=== PATIENT | female | born 1935 | race Caucasian/White ===

== ENCOUNTER 2016-12-24 15:20 | Outpatient (CLI) | payer MEDICARE, BC ==
[~2016-12-24] VITALS: Ht 175.3 cm; Wt 72.1 kg
[2016-12-25] MEDS ORDERED: ASPI-586 PO (11:42)
[2016-12-25] MEDS ORDERED: CNC1KV IJ (11:42)
[2016-12-25] MEDS ORDERED: CALC-6 PO (11:42)
[2016-12-25] MEDS ORDERED: LACT1CAP39 PO (11:42)
[2016-12-25] MEDS ORDERED: [UNRECOGNIZED DRUG - CODE] PO (11:42)
[2016-12-25] MEDS ORDERED: FLUT1BLS IH (11:42)
[2016-12-25] MEDS ORDERED: CITA10TA12 PO (11:42)
[2016-12-25] MEDS ORDERED: PEG15DRO5 OU (11:42)
[2016-12-25] MEDS ORDERED: OMG1KC PO (11:42)
[2016-12-25] MEDS ORDERED: CITA20TA12 PO (11:42)
[2016-12-25] MEDS ORDERED: FERR-74 PO (11:42)
[2016-12-25] MEDS ORDERED: FEXO-46 PO (11:42)
[2016-12-25] MEDS ORDERED: GUAI400T71 PO (11:42)
[2016-12-25] MEDS ORDERED: CLON0.252 PO (11:42)
[2016-12-25] MEDS ORDERED: IPRA3AMP IH (11:42)
[2016-12-25] MEDS ORDERED: DENO60DI SQ (11:42)
[2016-12-25] MEDS ORDERED: CRAN1TAB5 PO (11:42)
[2016-12-25] MEDS ORDERED: ACET325T49 PO (11:42)
[2016-12-25] MEDS ORDERED: FLUT9.9S NSEACH (11:42)
[2016-12-25] MEDS ORDERED: ASCO1TAB36 PO (11:42)
[2016-12-25] MEDS ORDERED: MONT10TA24 PO (11:54)
[2016-12-25] MEDS ORDERED: DICL100G18 TP (11:54)
[2016-12-25] MEDS ORDERED: MELA1TAB10 PO (11:54)
[2016-12-25] MEDS ORDERED: TIOT18CA2 IH (11:54)
[2016-12-25] MEDS ORDERED: COLL30OI TP (11:54)
[2016-12-25] MEDS ORDERED: HYDR-3812 PO (11:54)
[2016-12-25] MEDS ORDERED: PRED5TAB PO (11:54)
[2016-12-25] MEDS ORDERED: ISOS30TA8 PO (11:54)
[2016-12-25] MEDS ORDERED: SIMV10TA3 PO (11:54)
[2016-12-25] MEDS ORDERED: FURO-125 PO (11:54)
[2016-12-25] MEDS ORDERED: ONDA4TAB10 PO (11:54)
[2016-12-25] MEDS ORDERED: POLY119P5 PO (11:54)
[2016-12-25] MEDS ORDERED: NAPR500T3 PO (11:54)
[2016-12-25] MEDS ORDERED: TRAM50TA2 PO (11:54)
[2016-12-25] MEDS ORDERED: GLUC-219 PO (11:54)
[2016-12-25] MEDS ORDERED: MULT-166 PO (11:54)
== END 2016-12-24 16:30 ==
LOC: PREOP 15:20
PROVIDERS: ATTEND Orthopaedic Surgery
DX: Z01.818 Encounter for other preprocedural examination (principal)

== ENCOUNTER 2016-12-28 10:06 | Inpatient (IN) | payer MEDICARE, BC ==
[2016-12-28] VITALS (7 sets, daily range): BP systolic 77–154; BP diastolic 38–55
[~2016-12-28] VITALS: Ht 175.3 cm; Wt 68.6 kg
[~2016-12-28 10:06] MED LIST: ACET325T49 PO; ASCO1TAB36 PO; ASPI-586 PO; CALC-6 PO; CITA10TA12 PO; CITA20TA12 PO; CLON0.252 PO; CNC1KV IJ; COLL30OI TP; CRAN1TAB5 PO; DENO60DI SQ; DICL100G18 TP; FERR-74 PO; FEXO-46 PO; FLUT1BLS IH; FLUT9.9S NSEACH; FURO-125 PO; GLUC-219 PO; GUAI400T71 PO; HYDR-3812 PO; IPRA3AMP IH; ISOS30TA8 PO; LACT1CAP39 PO; MELA1TAB10 PO; MONT10TA24 PO; MULT-166 PO; NAPR500T3 PO; OMG1KC PO; ONDA4TAB10 PO; PEG15DRO5 OU; POLY119P5 PO; PRED5TAB PO; SIMV10TA3 PO; TIOT18CA2 IH; TRAM50TA2 PO; [UNRECOGNIZED DRUG - CODE] PO
[2016-12-28] MEDS ORDERED: VANCOMYCIN 1000 MG/VIAL ONE ×2 (11:18→11:22)
[2016-12-28] MEDS ORDERED: NEO/POLY/BAC (NEOSPORIN) OINT 15 GM TUBE ONE (11:19)
[2016-12-28] MEDS ORDERED: BUP/EPI 0.5% 1:200,000 (SENSORCAINE) 30 ML VIAL ONE (11:25)
[2016-12-28 11:31] LABS: MEAN PLATELET VOLUME 10.2 FL (7.4-10.4); RED BLOOD COUNT 4.05 10^6/uL (4.35-5.85); RED CELL DISTRIBUTION WIDTH 14.9 % (10.0-14.5); WHITE BLOOD COUNT 8.3 10^3/uL (4.3-11.0)
[2016-12-28] MEDS ORDERED: proPOfol 200 MG/20 ML (DIPRIVAN) VIAL IV ONE (11:37)
[2016-12-28] MEDS ORDERED: ROCURONIUM 50 MG/5 ML (ZEMURON) VIAL IV ONE (11:37)
[2016-12-28] MEDS ORDERED: fentaNYL INJECTION 250 MCG/5 ML AMP ONE (11:37)
[2016-12-28] MEDS ORDERED: DEXMEDETOMIDINE PRE-MIX (OR) 50 ML IV ONE (11:41)
[2016-12-28] MEDS: LACTATED RINGERS 1,000 ML IV PRN ×2 (12:00→14:12)
[2016-12-28] MEDS ORDERED: BACITRACIN 100,000 UNIT/NS 1000 ML POUR BOTTLE IR ONE ×2 (12:15)
--- NOTE | 2016-12-28 12:43 | Progress Note-Pre Operative ---
Pre-Operative Progress Note H&P Reviewed The H&P was reviewed, patient examined and no changes noted. Date H&P Reviewed: Dec 28, 2016 Time H&P Reviewed: 12:43 Pre-Operative Diagnosis: Lumbar burst fracture ELBA DE LA CRUZ DO Dec 28, 2016 12:43
[2016-12-28] MEDS ORDERED: CATHETER FLUSH 10 ML SYR IV PRN (13:45)
[2016-12-28] MEDS ORDERED: ceFAZolin INJECTION 1,000 MG in NS (IVPB) 50 ML IV ONE (13:45)
[2016-12-28] MEDS ORDERED: morphine INJ 10 MG/ML 1ML (SYR OR VIAL) ONE (14:42)
[2016-12-28] MEDS ORDERED: SEVOFLURANE (ULTANE) 15 ML INHAL SOLN ONE ×2 (15:35→16:38)
[2016-12-28] MEDS ORDERED: NS (IVPB) 100 ML ONE (15:35)
[2016-12-28] MEDS ORDERED: PHENYLEPHRINE INJ 10 MG/ML (NEO-SYNEPHRINE 1%) ONE (15:35)
[2016-12-28] MEDS ORDERED: PHENYLEPHRINE 100 MCG/ML 10 ML (ANESTHESIA) SYR ONE (15:35)
[2016-12-28] MEDS ORDERED: LACTATED RINGERS 2,000 ML IV ONE (15:35)
[2016-12-28] MEDS: NS IV 1000 ML 1,000 ML IV PRN ×2 (16:11→21:28)
[2016-12-28] MEDS ORDERED: NS IV 1000 ML 1,000 ML ONE ×2 (16:17→17:07)
[2016-12-28] MEDS ORDERED: ONDANSETRON 4 MG/2 ML (SDV) Z0FRAN ONE (16:37)
--- NOTE | 2016-12-28 16:58 | Diagnostic Imaging Report ---
INDICATION: Intraoperative views of the lumbar spine. INDICATION: Lumbar spine fusion. FLUOROSCOPY TIME: The fluoroscopic time provided to the OR is 99 seconds. IMPRESSION: The provided images demonstrate transpedicular screws placed at multiple levels in the lumbar spine. Dictated by: Dictated on workstation # [id number]
[2016-12-28] MEDS: morphine INJ 10 MG/ML 1ML (SYR OR VIAL) IVP PRN ×4 (17:00→17:12)
[2016-12-28] MEDS ORDERED: FUROSEMIDE 40 MG/4 ML INJ (LASIX) IVP NR (17:15)
[2016-12-28] MEDS ORDERED: ACETAMINOPHEN 325 MG TABLET/CAPLET (TYLENOL) PO PRN (17:15)
[2016-12-28] MEDS ORDERED: ONDANSETRON 4 MG/2 ML (SDV) Z0FRAN IVP PRN (17:15)
[2016-12-28] MEDS ORDERED: ONDANSETRON 4 MG/2 ML (SDV) Z0FRAN IV PRN (17:15)
[2016-12-28] MEDS ORDERED: BISACODYL 5 MG (DULCOLAX) TABLET PO PRN (17:15)
[2016-12-28] MEDS ORDERED: HYDROmorphone (DILAUDID) 2 MG/ML VIAL IVP PRN (17:15)
[2016-12-28] MEDS: SENNOSIDES 8.6 MG (SENOKOT) TAB PO SCH (20:32)
[2016-12-28] MEDS: DOCUSATE SODIUM 100 MG (COLACE) CAP PO SCH (20:32)
[2016-12-28] MEDS: ceFAZolin INJECTION 1,000 MG in NS (IVPB) 50 ML IV SCH (20:32)
[2016-12-28] MEDS: morphine INJ 4 MG/ML 1 ML (VIAL/SYRINGE) IVP PRN (20:32)
[2016-12-28] MEDS: oxyCODONE/APAP 5/325MG (PERCOCET 5) TABLET PO PRN (20:32)
[2016-12-28] MEDS: FAMOTIDINE 20 MG (PEPCID) TABLET PO SCH (20:32)
[2016-12-29] VITALS (23 sets, daily range): BP systolic 98–152; BP diastolic 42–111
[2016-12-29] MEDS: CYCLOBENZAPRINE 10 MG (FLEXERIL) TAB PO PRN (00:27)
[2016-12-29] MEDS: morphine INJ 4 MG/ML 1 ML (VIAL/SYRINGE) IVP PRN ×6 (00:28→18:14)
[2016-12-29] MEDS: NS IV 1000 ML 1,000 ML IV PRN ×2 (03:58→14:37)
[2016-12-29] MEDS: oxyCODONE/APAP 5/325MG (PERCOCET 5) TABLET PO PRN ×2 (04:02→08:52)
[2016-12-29 04:26] LABS: RED BLOOD COUNT 2.65 10^6/uL (4.35-5.85); RED CELL DISTRIBUTION WIDTH 15.2 % (10.0-14.5); WHITE BLOOD COUNT 10.7 10^3/uL (4.3-11.0)
[2016-12-29 04:58] LABS: ALANINE AMINOTRANSFERASE 23 U/L (0-55); ALBUMIN 2.1 G/DL (3.2-4.5); ANION GAP 6 MMOL/L (5-14); ASPARTATE AMINO TRANSFERASE 34 U/L (5-34); BILIRUBIN,TOTAL 0.3 MG/DL (0.1-1.0); BLOOD UREA NITROGEN 15 MG/DL (7-18); BUN/CREATININE RATIO 27; CARBON DIOXIDE 20 MMOL/L (21-32); CHLORIDE 113 MMOL/L (98-107); CREATININE SERUM 0.56 MG/DL (0.60-1.30); GFR ESTIMATED > 60; GLUCOSE 99 MG/DL (70-105); POTASSIUM 3.6 MMOL/L (3.6-5.0); SODIUM 139 MMOL/L (135-145); TOTAL PROTEIN 3.8 G/DL (6.4-8.2)
[2016-12-29 05:03] LABS: CALCIUM 5.8 MG/DL (8.5-10.1)
[2016-12-29] MEDS: ceFAZolin INJECTION 1,000 MG in NS (IVPB) 50 ML IV SCH ×2 (05:17→15:08)
[2016-12-29] MEDS ORDERED: CALCIUM CHLORIDE 1 GM/10 ML (IMS) SYR ONE (06:12)
[2016-12-29] MEDS ORDERED: NS (IVPB) 100 ML ONE (06:13)
[2016-12-29] MEDS ORDERED: CALCIUM GLUCONATE 10% INJ 4.65 MEQ in NS (IVPB) 50 ML IV ONE (06:15)
[2016-12-29] MEDS ORDERED: CALCIUM GLUC. 10% 4.65 MEQ/10 ML VIAL ONE (06:16)
[2016-12-29] MEDS: MULTIVIT W/MINERALS TAB (THERAGRAN M) PO SCH (07:46)
--- NOTE | 2016-12-29 08:08 | Progress Note (SOAP) ---
Subjective Subjective/Events-last exam Mrs Simms is POD #1 s/p L3-S1 PSIF with L4-S1 laminectomy for burst fracture. She is doing well this am and her pain is controlled. She has not been OOB and states she has been compliant with IS. She is laying flat for comfort but is not restricted from a post op standpoint and i encouraged her to raise HOB. She has cough but denies sob or chest pain. She had 1L blood loss during surgery and has received 1 unit prbc with 1 unit on hold. Her medications have not yet been confirmed for reconciliation. Review of Systems General: No Chills, No Night Sweats HEENT: No Head Aches Pulmonary: No Dyspnea, Cough Cardiovascular: No: Chest Pain, Palpitations Gastrointestinal: No: Abdominal Pain, Nausea, Vomiting Musculoskeletal: back pain Neurological: Numbness, Weakness, No: Change in speech, Confusion, Incoordination Objective Exam Vital Signs Date Time Temp Pulse Resp B/P (MAP) Pulse Ox O2 Delivery O2 Flow Rate FiO2 12/29/16 06:00 87 18 106/42 96 Nasal Cannula 3.00 12/29/16 05:00 89 14 109/42 93 Nasal Cannula 3.00 12/29/16 04:05 99 Nasal Cannula 3.00 12/29/16 04:00 100.2 86 20 122/49 98 Nasal Cannula 3.00 12/29/16 03:00 82 15 112/49 93 Nasal Cannula 3.00 12/29/16 02:00 85 16 105/47 96 Nasal Cannula 3.00 12/29/16 01:00 84 15 100/49 97 Nasal Cannula 3.00 12/29/16 01:00 85 12/29/16 00:00 98.7 85 16 98/46 96 Nasal Cannula 3.00 12/29/16 00:00 96 Nasal Cannula 3.00 12/28/16 23:00 89 18 91/38 97 Nasal Cannula 3.00 12/28/16 22:43 Nasal Cannula 3.00 12/28/16 22:00 93 17 117/50 95 Nasal Cannula 3.00 12/28/16 21:00 84 18 105/50 95 Nasal Cannula 3.00 12/28/16 20:00 78 17 89/44 95 Nasal Cannula 3.00 12/28/16 19:00 82 12/28/16 19:00 98.9 78 17 91/44 94 Nasal Cannula 3.00 12/28/16 18:30 93 3.00 12/28/16 18:30 98.7 87 10 77/51 93 3.00 12/28/16 18:30 98.7 86 14 84/41 93 Nasal Cannula 3.00 12/28/16 17:12 97.2 12/28/16 17:08 97.2 12/28/16 17:04 97.2 12/28/16 17:00 97.2 12/28/16 12:00 98.5 78 18 154/55 95 Nasal Cannula 2.50 I & O 12/29/16 07:00 Intake Total 3680 ml Output Total 1180 ml Balance 2500 ml Capillary Refill : General Appearance: No Apparent Distress Neck: Normal Inspection Respiratory: No Accessory Muscle Use, No Respiratory Distress Cardiovascular: Regular Rate, Rhythm, No Edema, Normal Peripheral Pulses Peripheral Pulses: 2+ Dorsalis Pedis (R), 2+ Left Dors-Pedis (L), 2+ Radial Pulses (R), 2+ Radial Pulses (L) Gastrointestinal: non tender, soft, no organomegaly, no pulsatile mass Extremity: Normal Capillary Refill, Normal Inspection, Normal Range of Motion, Non Tender, No Calf Tenderness, No Pedal Edema Neurologic/Psychiatric: Alert, Oriented x3, Other (4/5 left anterior tibialis) Results Lab Laboratory Tests 12/28/16 11:22: White Blood Count 8.3, Red Blood Count 4.05L, Hemoglobin 12.2, Hematocrit 38, Mean Corpuscular Volume 93, Mean Corpuscular Hemoglobin 30, Mean Corpuscular Hemoglobin Concent 33, Red Cell Distribution Width 14.9H, Platelet Count 272, Mean Platelet Volume 10.2 12/28/16 17:24: Hemoglobin 9.6#L, Hematocrit 30L 12/29/16 04:10: White Blood Count 10.7, Red Blood Count 2.65L, Hemoglobin 8.0L, Hematocrit 25L, Mean Corpuscular Volume 93, Mean Corpuscular Hemoglobin 30, Mean Corpuscular Hemoglobin Concent 32, Red Cell Distribution Width 15.2H, Platelet Count 141, Mean Platelet Volume 11.0H, Sodium Level 139, Potassium Level 3.6, Chloride Level 113H, Carbon Dioxide Level 20L, Anion Gap 6, Blood Urea Nitrogen 15, Creatinine 0.56L, Estimat Glomerular Filtration Rate > 60, BUN/Creatinine Ratio 27, Glucose Level 99, Calcium Level 5.8*L, Total Bilirubin 0.3, Aspartate Amino Transf (AST/SGOT) 34, Alanine Aminotransferase (ALT/SGPT) 23, Alkaline Phosphatase 53, Total Protein 3.8L, Albumin 2.1L Assessment/Plan Assessment/Plan Assess & Plan/Chief Complaint Assessment: POD #1 s/p lumbar decompression and fusion ABL anemia hypocalcemia COPD osteoporosis Plan: monitor labs - had 1 prbc, 1 on hold reconcile meds consider mag and vit d level if no improvement in calcium IS at bedise and encouraged OOB with PT drain output 350 - continue drain Clinical Quality Measures DVT/VTE Risk/Contraindication: Risk Factor Score Per Nursin RFS Level Per Nursing on Admit: 4+=Very High ARAVIND DELGADILLO Dec 29, 2016 08:07
[2016-12-29] MEDS: DOCUSATE SODIUM 100 MG (COLACE) CAP PO SCH ×2 (08:51→20:00)
[2016-12-29] MEDS: SENNOSIDES 8.6 MG (SENOKOT) TAB PO SCH ×2 (08:51→20:00)
[2016-12-29] MEDS: FAMOTIDINE 20 MG (PEPCID) TABLET PO SCH ×2 (08:51→20:00)
--- NOTE | 2016-12-29 09:08 | Consultation-Hospitalist ---
HPI History of Present Illness: HPI/Chief Complaint CC: s/p spine burst fracture repair POD # 1 HPI: This is an 81-year-old white female [facility] patient of Dr. Rondon the presents to the ICU following a very complex spine surgery following a burst fracture. Dr. Yanez performed the procedure in an uncomplicated manner but he shouldn't did lose 1 L of blood loss during the procedure so she was given 1 unit of packed red blood cell transfusion in 1 remains on hold. Hypocalcemia has been managed with calcium gluconate initiation but overall her dementia and high risk for postop pneumonia due to inability to get up and around because of the pain is certainly an issue. Her daughters at the bedside and is from out of town and not familiar with most of her medical problems except for her behavior issues that require [facility] placement. The priority is to get her back to [facility] where she is familiar with the staff in her room in order to facilitate recovery. Incentive spirometry has been ordered but due to dementia unsure if she is given a be able to perform that with any effort. I did order nebulizer treatments to try to expand lungs and outweigh and initiated physical therapy and occupational therapy along with getting out of bed in chair to help prevent a postop pneumonia. She reports spine pain but otherwise she does report heel pain which heal protectors are being ordered. Source: family Exam Limitations: clinical condition Date Seen 12/29/16 Attending Physician Curt Yanez DO PCP Fred Espinal DO Referring Physician Date of Admission Dec 28, 2016 at 10:30 Home Medications & Allergies Home Medications Reviewed patient Home Medication Reconciliation Form Allergies Allergies Coded Allergies nitrofurantoin (Verified Allergy, Unknown, 12/24/16) Past Kbabbsr-Juwaqu-Gmcjmc Hx Patient Social History Marrital Status: Employed/Student: retired Alcohol Use: Denies Use Recreational Drug Use: No Smoking Status: Former Smoker Type Used: Cigarettes Physical Abuse Screen: No Sexual Abuse: No Recent Foreign Travel: No Contact w/other who traveled: No Recent Hopitalizations: No Recent Infectious Disease Expo: No Immunizations Up To Date Date of Pneumonia Vaccine: Nov 02, 2015 Date of Influenza Vaccine: Aug 04, 2016 Seasonal Allergies Seasonal Allergies: Yes Surgeries HX Surgeries: Yes Surgeries: Orthopedic Respiratory Hx Respiratory Disorders: No Cardiovascular Hx Cardiovascular Disorders: Yes Cardiac Disorders: High Cholesterol, Hypertension Neurological Hx Neurological Disorders: Yes Neurological Disorders: Dementia Genitourinary Hx Genitourinary Disorders: No Gastrointestinal Hx Gastrointestinal Disorders: Yes Gastrointestinal Disorders: Chronic Constipation Musculoskeletal Hx Musculoskeletal Disorders: Yes Musculoskeletal Disorders: Osteoporosis, Arthritis, Chronic Back Pain Endocrine Hx Endocrine Disorders: No HEENT HX ENT Disorders: No Loss of Vision: Bilateral Hearing Impairment: Hard of Hearing Cancer Hx Cancer: No Cancer: Skin Psychosocial Behavioral Health Disorders: Anxiety, Depression Family Medical History Family Hx: Asthma 19 MOTHER G8 BROTHER Cardiovascular disease G8 BROTHER G8 SISTER Hypertension G8 BROTHER G8 SISTER Myocardial infarction G8 BROTHER G8 SISTER Review of Systems ROS-Unable to Obtain: unable to ascertain due to dementia Constitutional: see HPI Physical Exam Physical Exam Vital Signs Vital Sign - Last 12Hours 12/28/16 12:00 Temp 98.5 Pulse 78 Resp 18 B/P (MAP) 154/55 Pulse Ox 95 O2 Delivery Nasal Cannula O2 Flow Rate 2.50 Capillary Refill : General Appearance: WD/WN, Mild Distress (due to spine pain) Eyes: Bilateral Eye Normal Inspection, Bilateral Eye PERRL HEENT: PERRL/EOMI, Normal ENT Inspection, Pharynx Normal Neck: Full Range of Motion, Normal Inspection, Non Tender, Supple, Carotid Bruit Respiratory: Chest Non Tender, Lungs Clear, No Accessory Muscle Use, No Respiratory Distress, Decreased Breath Sounds Cardiovascular: Regular Rate, Rhythm, No Edema, No Gallop, No JVD, No Murmur, Normal Peripheral Pulses Gastrointestinal: Normal Bowel Sounds, No Organomegaly, No Pulsatile Mass, Non Tender, Soft Back: Decreased Range of Motion Extremity: Normal Capillary Refill, Normal Inspection, Normal Range of Motion, Non Tender, No Calf Tenderness, No Pedal Edema Neurologic/Psychiatric: Alert, No Motor/Sensory Deficits, Normal Mood/Affect, Other (disoriented) Skin: Normal Color, Warm/Dry Lymphatic: No Adenopathy Results Results/Procedures Lab Laboratory Tests 12/28/16 11:22 12/28/16 17:24 12/29/16 04:10 Assessment/Plan Admission Diagnosis Assessment: Status post uncomplicated spine surgery to repair burst fracture Postop anemia due to acute blood loss received 1 unit of packed red blood cells Severe hypocalcemia requiring calcium gluconate initiation Dementia Anxiety Behavior problems Chronic constipation Osteoarthritis High risk for postop pneumonia Assessment and Plan Plan: Incentive spirometry Nebulizer treatments DVT prophylaxis SCDs Transfuse as needed Calcium gluconate initiation Monitor labs PT/OT Heel protectors Out of bed Pain control High risk for further complications due to dementia related issues Clinical Quality Measures DVT/VTE Risk/Contraindication: Risk Factor Score Per Nursin RFS Level Per Nursing on Admit: 4+=Very High JOE AVERY DO Dec 29, 2016 09:08
--- NOTE | 2016-12-29 09:09 | Diagnostic Imaging Report ---
INDICATION: Post operative evaluation, lumbar surgery. EXAMINATION: Lumbar spine on 12/29/2016. TECHNIQUE: Two views of the lumbar spine were performed. FINDINGS: There are skin cari overlying the midline of the lumbar region with an overlying surgical drain in place. Post operative screws and rods extend along the lower lumbar region but difficult to count due to superimposed densities in bowel upon the lower lumbar region. These likely extend from L3 through the S1 level with bilateral SI joint screws also noted. Correlate with surgical notes. The osseous structures are fairly well aligned. Bone graft is noted. The L5 vertebral body is not well seen, perhaps due to compression deformity. IMPRESSION: Uncomplicated but limited post operative evaluation. Dictated by: Dictated on workstation # [id number]
--- NOTE | 2016-12-29 10:24 | Physical Therapy Evaluation ---
PT Evaluation-General Medical Diagnosis Admission Date Dec 28, 2016 at 10:30 Medical Diagnosis: lumbar burst fracture Onset Date: Dec 28, 2016 Therapy Diagnosis Therapy Diagnosis: weakness and debility Height/Weight Height (Feet): 5 Height (Inches): 9.00 Weight (Pounds): 154 Weight (Ounces): 0.5 Precautions Precautions/Isolations: Fall Prevention, Standard Precautions Referral Physician: Beau Reason for Referral: Evaluation/Treatment Medical History Pertinent Medical History: COPD Additional Medical History osteoporosis Current History Per Daughter, patient injured vertebrae in [place] at [place]. Reviewed History: Yes Social History Home: [facility] Prior/Core FIM Prior Level of Function Functional [place] Measure 0=Not Assessed/NA 4=Minimal Assistance 1=Total Assistance 5=Supervision or Setup 2=Maximal Assistance 6=Modified [place] 3=Moderate Assistance 7=Complete [place] Bed Mobility: 2 Transfers (B,C,W/C) (FIM): 2 Gait: 1 per family, patient is 2 person assist PLOF at [place] PT Evaluation-Current Subjective Patient and family are very resistive and hesitant to begin PT. PT educated patient on importance of increasing mobility slowly to prevent pneumonia and improve circulation. Patient and family agree. Pain Numeric Pain Scale: 10-Worst Possible Pain Location: Lower Location Body Site: Back Pain Description: Pressure, Stabbing, Acute, Sharp Objective Patient Orientation: Confused Problem Solving: Poor Attachments: Oxygen, Drains, Agrawal Catheter, IV ROM/Strength ROM Lower Extremities bilateral LE WFL Strenght Lower Extremities severely diminished strength bilateral gastrocsoleus musculature due to inactivity PLOF and disease process; no formal testing due to patient inability to tolerate or follow direction Integumentary/Posture Integumentary refer to nursing notes Bladder Incontinence: Agrawal Cath Posture WNL in supine position Neuromuscular (Tone, Coordination, Reflexes) severely diminished coordination PLOF Sensory Vision: Functional Hearing: Impaired Sensation Right Lower Extremit: Impaired Sensation Left Lower Extremity: Impaired Transfers Functional [place] Measure 0=Not Assessed/NA 4=Minimal Assistance 1=Total Assistance 5=Supervision or Setup 2=Maximal Assistance 6=Modified [place] 3=Moderate Assistance 7=Complete [place] Transfers (B, C, W/C) (FIM): 1 Scootin Rollin PT and tech attempted to assist patient with performing supine to sit transfer to sit EOB with extremely slow, PROM movement to diminished pain response. Patient unable to tolerate at this time. Assessment/Needs 81 y.o. female, with uncontrolled back pain, will benefit from skilled PT to address functional strength and mobility to improve current LOF. Patient is currently unable to tolerate minimal activity due to uncontrolled pain. Daughter is very attentive and apprehensive to allow PT to perform professional duties to assist patient in recovery. Education with daughter on receiving the order from the physician to begin therapy. Daughter continues to resist. PT will continue to attempt treatment with patient to assist patient in regaining function. Rehab Potential: Guarded Post Rehab Potential-Barriers: uncontrolled back pain PT Project Intern Goals Project Intern Goals PT Project Intern Goals Time Frame: Jan 08, 2017 Transfers (B,C,W/C) (FIM): 2 Gait (FIM): 1 Gait distance (FIM): 1=up to 49 ft Distance: 5' Gait Level of Assist: 2 Gait Assistive Device: FWW PT Plan Problem List Problem List: Activity Tolerance, Functional Strength, Bed Mobility Treatment/Plan Treatment Plan: Continue Plan of Care Treatment Plan: Bed Mobility, Education, Functional Activity Sander, Functional Strength, Gait, Safety, Therapeutic Exercise, Transfers Treatment Duration: Jan 08, 2017 # of days/week 5-6 Visits Per Week: 5-6 Minutes/Day (Sat/Pandey): PRN Pt/Family Agrees w/Plan: Yes Safety Risks/Education Patient Education: Correct Positioning, Safety Issues Teaching Recipient: Patient, Family Teaching Methods: Demonstration, Discussion Response to Teaching: Reinforcement Needed Discharge Recommendations Therapy D/C Recommendations: Fpc Placement, [facility] (TCU/NH) Time/GCodes Time In: 905 Time Out: 930 Total Billed Treatment Time: 25 Total Billed Treatment 1 visit EVMod 25 min CARYL LION PT Dec 29, 2016 10:24
--- NOTE | 2016-12-29 11:39 | Anesthesia-General Post-Op ---
General Patient Condition Mental Status/LOC: Same as Preop Cardiovascular: Satisfactory Nausea/Vomiting: Absent Respiratory: Satisfactory Pain: Controlled Complications: Absent Post Op Complications Complications None Follow Up Care/Instructions Patient Instructions None needed. Anesthesia/Patient Condition Patient Condition Patient is doing well, C/O pain which is expected, stable vital signs, no apparent adverse anesthesia problems. FELY DANG DO Dec 29, 2016 11:39
--- NOTE | 2016-12-29 14:21 | Occupational Therapy Eval ---
OT Evaluation-General/PLF Medical Diagnosis Admission Date Dec 28, 2016 at 10:30 Medical Diagnosis: lumbar burst fracture Onset Date: Dec 28, 2016 Therapy Diagnosis Therapy Diagnosis: Impaired self care skills Height/Weight Height (Feet): 5 Height (Inches): 9.00 Weight (Pounds): 154 Weight (Ounces): 0.5 Precautions Precautions/Isolations: Fall Prevention, Standard Precautions Safety Interventions: None Referral Physician: Beau Medical History Pertinent Medical History: Arthritis, COPD, Dementia, HTN Additional Medical History high cholesterol, osteoporosis, chronic back pain. Current History pt s/p L3-S1 PSIF, L4-S1 laminectomy Reviewed History: Yes Social History Home: Custodial ADL-Prior Level of Function ADL PLOF Comments Pt states she is able to ambulate with FWW and complete basic self care. Has assist with bathing. OT Current Status Subjective Pt in bed, agrees to therapy. States she needs to have a BM. Pt does not rate pain, but reports pain in right hip and back. RN reports pt recently had pain medication. Mental Status/Objective Patient Orientation: Person, Confused Attachments: Drains, Agrawal Catheter, IV, Oxygen Current Glasses/Contacts: Yes (reading) Upper Extremity ROM Grossly functional ADL-Treatment ADL-Current Co-treat with PT. Pt supine to sit with assist x2. Pt apprehensive and resists movement at times. Multiple cues are required for safety. Pt states she needs to use the BSC. Dependent for transfer to BSC. Pt unable to have BM. Transfer to chair with total assist. Increased time required for mobility. Pt sitting in chair with needs met and daughter present after session. OT focusing on hand placement/UE management and sequencing during transfers. PT focusing on standing balance and transfers. Functional [place] Measure 0=Not Assessed/NA 4=Minimal Assistance 1=Total Assistance 5=Supervision or Setup 2=Maximal Assistance 6=Modified [place] 3=Moderate Assistance 7=Complete IndependenceIRFPAI Quality Coding Scale 6 Independent with activity with or without an assistive device 5 Patient requires set up or clean up by helper. Patient completes activity by themselves 4 Supervision or touching assist (CGA). [place] provide cues , steadying assist 3 The helper provides less than half the effort to complete the activity 2 The helper provides more than half the effort to complete the activity 1 Dependent. The helper does all the effort to complete an activity 7 Patient refused to complete or attempt activity 9 The patient did not perform the activity before the current illness or injury 88 Not attempted due to Medical conditions or safety concerns Transfers (B, C, W/C) (FIM): 1 Toilet/Commode Transfer (FIM): 1 Education OT Patient Education: Rehab process Teaching Recipient: Patient Teaching Methods: Discussion Response to Teaching: Reinforcement Needed OT Short Term Goals Short Term Goals 1=Demonstrate adherence to instructed precautions during ADL tasks. 2=Patient will verbalize/demonstrate understanding of assistive devices/ modifications for ADL. 3=Patient will improve strength/tolerance for activity to enable patient to perform ADL's. OT Alf Goals Alf Goals Time Frame: Jan 12, 2017 Eating (FIM): 5 Grooming(FIM): 5 Upper Body Dressing(FIM): 4 Lower Body Dressing(FIM): 2 Toilet/Commode Transfer(FIM): 3 Additional Goals: 1-Demonstrate ADL Tasks, 2-Verbalize Understanding, 3- ImproveStrength/Sander 1=Demonstrate adherence to instructed precautions during ADL tasks. 2=Patient will verbalize/demonstrate understanding of assistive devices/ modifications for ADL. 3=Patient will improve strength/tolerance for activity to enable patient to perform ADL's. OT Education/Plan Problem List/Assessment Assessment: Decreased Safety Aware, Decreased UE Strength, Dependent Transfers , Impaired Funct Balance, Impaired Self-Care Skills Pt s/p L3-S1 PSIF with L4-S1 laminectomy. Pt dependent for mobility at this time. Pt to benefit from skilled OT intervention for ADL training, transfers, strengthening, and safety education to maximize level of function to allow safe return to [place]. Discharge Recommendations Plan/Recommendations: Continue POC Treatment Plan/Plan of Care Patient would benefit from OT for education, treatment and training to promote independence in ADL's, mobility, safety and/or upper extremity function for ADL' s. Plan of Care: ADL Retraining, Functional Mobility, UE Funct Exercise/Act Treatment Duration: Jan 12, 2017 # of days/week 5 Visits Per Week: 5 Rehab Potential: Guarded Time/GCodes Start Time: 13:40 Stop Time: 14:00 Total Time Billed (hr/min): 20 Billed Treatment Time 1 visit, EVKell(20minutes) EJRRY RASHID OT Dec 29, 2016 14:21
--- NOTE | 2016-12-29 14:33 | Physical Therapy Daily Note ---
PT Daily Note-Current Subjective PT and OT cotreat. Pain Numeric Pain Scale: 10-Worst Possible Pain Location: Medial, Lower Location Body Site: Back Pain Description: Acute, Sharp Mental Status Patient Orientation: Confused Attachments: Oxygen, Drains, Agrawal Catheter, IV Transfers Functional [place] Measure 0=Not Assessed/NA 4=Minimal Assistance 1=Total Assistance 5=Supervision or Setup 2=Maximal Assistance 6=Modified [place] 3=Moderate Assistance 7=Complete IndependenceIRFPAI Quality Coding Scale 6 Independent with activity with or without an assistive device 5 Patient requires set up or clean up by helper. Patient completes activity by themselves 4 Supervision or touching assist (CGA). [place] provide cues , steadying assist 3 The helper provides less than half the effort to complete the activity 2 The helper provides more than half the effort to complete the activity 1 Dependent. The helper does all the effort to complete an activity 7 Patient refused to complete or attempt activity 9 The patient did not perform the activity before the current illness or injury 88 Not attempted due to Medical conditions or safety concerns Transfers (B, C, W/C) (FIM): 1 Scootin Supine to/from Sit: 1 Sit to/from Stand: 1 Bed to/from Chair: 1 PT addresses sitting balance EOB and standing balance in stand with FWW, while OT address hand position on FWW and problem solving during supine to sit and sit to stand transfers bed to commode to recliner. Weight Bearing Weight Bearing Restriction: Weight Bearing/Tolerated Location Restriction: LE Bilateral Assessment Patient continues with uncontrolled pain during treatment session with family present. Patient had pain medication prior to treatment. PT Tax Revenue Officer Goals Tax Revenue Officer Goals PT Tax Revenue Officer Goals Time Frame: Jan 08, 2017 Transfers (B,C,W/C) (FIM): 2 Gait (FIM): 1 Gait distance (FIM): 1=up to 49 ft Distance: 5' Gait Level of Assist: 2 Gait Assistive Device: FWW PT Plan Treatment/Plan Treatment Plan: Continue Plan of Care Treatment Plan: Bed Mobility, Education, Functional Activity Sander, Functional Strength, Gait, Safety, Therapeutic Exercise, Transfers Treatment Duration: Jan 08, 2017 Visits Per Week: 5-6 Minutes/Day (Sat/Pandey): PRN Time/GCodes Time In: 1330 Time Out: 1340 Total Billed Treatment Time: 10 Total Billed Treatment 1 visit FA 10 min CARYL LION PT Dec 29, 2016 14:33
[2016-12-29] MEDS ORDERED: diphenhydrAMINE 25 MG TAB (BENADRYL) PO PRN (17:00)
[2016-12-29] MEDS: RT-ALBUTEROL SULF 2.5 MG/3 ML PRE-MIX VIAL IH SCH ×3 (17:10→19:13)
--- NOTE | 2016-12-29 17:29 | Diagnostic Imaging Report ---
AP view of the pelvis. INDICATION: Hip pain. FINDINGS: There is posterior fusion hardware with connecting rods involving the L3-S1 level with sacral screws through the SI joints bilaterally. Bone graft material is seen. There is moderate joint loss in the right hip with subchondral sclerosis compatible with osteoarthritis. Mild osteoarthritis changes are seen in the left hip. Calcifications with popcorn character seen in the pelvis are favored to be related to calcified fibroids. IMPRESSION: Post lumbosacral fusion changes. Bilateral hip osteoarthritis worse on the right side. Popcorn pelvic calcifications are favored to be related to uterine fibroids. Dictated by: Dictated on workstation # [id number]
[2016-12-29] MEDS: BISACODYL 10 MG SUPP (DULCOLAX) PR PRN (20:18)
[2016-12-29] MEDS: oxyCODONE/APAP 10/325MG (PERCOCET 10) TABLET PO PRN (20:19)
[2016-12-29] MEDS ORDERED: POLYETHYLENE GLYCOL 17 GM (MIRALAX) PACK ONE (22:30)
[2016-12-29] MEDS: POLYETHYLENE GLYCOL 17 GM (MIRALAX) PACK PO SCH (22:34)
[2016-12-30] VITALS (14 sets, daily range): BP systolic 99–155; BP diastolic 38–67
[2016-12-30] MEDS: oxyCODONE/APAP 10/325MG (PERCOCET 10) TABLET PO PRN ×4 (02:59→23:51)
[2016-12-30] MEDS: MULTIVIT W/MINERALS TAB (THERAGRAN M) PO SCH (06:35)
[2016-12-30 06:45] LABS: ANION GAP 6 MMOL/L (5-14); BLOOD UREA NITROGEN 10 MG/DL (7-18); BUN/CREATININE RATIO 17; CALCIUM 7.2 MG/DL (8.5-10.1); CARBON DIOXIDE 24 MMOL/L (21-32); CHLORIDE 107 MMOL/L (98-107); GFR ESTIMATED > 60; GLUCOSE 101 MG/DL (70-105); POTASSIUM 3.9 MMOL/L (3.6-5.0); SODIUM 137 MMOL/L (135-145)
[2016-12-30] MEDS: RT-ALBUTEROL SULF 2.5 MG/3 ML PRE-MIX VIAL IH SCH ×3 (07:12→19:53)
[2016-12-30] MEDS: SENNOSIDES 8.6 MG (SENOKOT) TAB PO SCH ×2 (08:44→22:16)
[2016-12-30] MEDS: FAMOTIDINE 20 MG (PEPCID) TABLET PO SCH (08:44)
[2016-12-30] MEDS: POLYETHYLENE GLYCOL 17 GM (MIRALAX) PACK PO SCH ×3 (08:44→22:19)
[2016-12-30] MEDS: DOCUSATE SODIUM 100 MG (COLACE) CAP PO SCH ×2 (08:44→22:15)
--- NOTE | 2016-12-30 09:26 | OPERATIVE REPORT ---
PROCEDURE PHYSICIAN: ELBA DE LA CRUZ DATE OF PROCEDURE: 12/28/2016 SURGEON: Dr. Beau DO SURGEON: Dr. Beau D.O. POST TENSIONING IRONWORKER: STEF Porter. This is a medically necessary procedure and perinatal breastfeeding assistant is necessary for retraction of vital neurovascular structures. Without an perinatal breastfeeding assistant, the procedure would not be possible. PREOPERATIVE DIAGNOSES: 1. Lumbar burst fracture, L5. 2. Neurogenic claudication. 3. Osteoporosis. 4. Spinal stenosis (bony, connective tissue, central, foraminal). POSTOPERATIVE DIAGNOSIS: 1. Lumbar burst fracture, L5. 2. Neurogenic claudication. 3. Osteoporosis. 4. Spinal stenosis (bony, connective tissue, central, foraminal). PROCEDURE PERFORMED: 1. L3-4, L4-5, L5-S1, S1 to pelvis posterior instrumentation. 2. Posterior spinal fusion, L3-4, L4-5, L5-S1, S1 to pelvis. 3. Pelvic fixation at the end of the construct. 4. Bilateral laminectomy at L4-5, L5-S1 with complete facetectomies at L4-5. 5. Transpedicular decompression, L5. 6. Use of human allograft for spine. 7. Use of local bone autograft. COMPLICATIONS: None. SPECIMENS SENT: L5 specimen. ESTIMATED BLOOD LOSS: 1000 mL. ANESTHESIA: General endotracheal tube anesthesia with local anesthetic. DRAIN PLACED: Hemovac subfascial drain. HISTORY OF PRESENT ILLNESS: Ms. Simms is a very pleasant 81-year-old female who presented to my office with inability to ambulate for 2 weeks. Lower extremity weakness started after a fall in which she obtained L5 burst fracture with retropulsion and severe canal compromise. MRI did demonstrate the severity of this. Due to the patient's severe weakness, pain and neurologic deficits it was decided to perform an instrumented posterior decompression. She understood the risks and benefits, given her age however, she wished to proceed. OPERATION: The patient was identified by name on wrist band in the preoperative holding area. Her operative site was signed, consent was signed. SCDs were placed. Neural monitors hooked up and antibiotics were started. She was taken to the operating room theater, placed under general endotracheal tube anesthesia and transferred to the operating room table in the prone position. All bony prominences were well padded. She was prepped and draped in the sterile fashion. A formal timeout was conducted. At this point lateral x-ray was brought. I marked out the extent of my incision. I infiltrated the skin and soft tissue with 0.5% Marcaine with epinephrine. I then made a midline lumbar incision from the spinous process of L3 to spinous process of S-2. I proceeded with a bilateral subperiosteal paraspinal muscular approach exposing the posterior elements. At this point, I placed posterior instrumentation in the form of pedicle screws bilaterally in L3, L4. I skipped L5, due to the fracture, S1. I tested these with EMG neural monitoring. AP and lateral x-ray demonstrated appropriate positioning of all the screws. I then turned my attention to the iliac crest bolts. I did place a screw on the left and the right. Starting at the typical S2 entry point, I obtained a teardrop view on the x-ray and I placed iliac screws into the ilium. AP and lateral x-ray demonstrated appropriate positioning of the screws. After the instrumentation was in place, I turn my attention to the decompression and I performed bilateral laminectomy from L4-5 and L5-S1. I then proceeded with a bilateral complete facetectomy at L4-5 and I did a transpedicular decompression at L5 completely removing the pedicles and I used a downgoing curette to tamp the posterior vertebral body wall of L5 anteriorly to decompress the L5 level anteriorly. During my decompression, L5 vertebral body specimen was sent for pathologic analysis. When I was finished I was staring at nerve roots bilaterally at L4 and L5. There was 100% decompression of these. I then placed a vijay on the left a vijay on the right. I bent the rods to the appropriate lumbar lordosis. I placed set screws, I final tightened all of these set screws. Please note that the instrumentation extended from L3 all the way to the pelvis. At this point, I thoroughly irrigated the wound with 2 liters of antibiotic enhanced irrigation. I maintained hemostasis with FloSeal. I decorticated the remaining posterior bony elements and I packed the left and the right gutter with mixture of human allograft and local bone autograft. I placed a subfascial Hemovac drain. I sewed the drain into place. I closed the wound in my usual layered fashion utilizing 0 Vicryl, followed by 2-0 Vicryl, followed by cari for skin. I applied dressings. I took the patient in supine position and took her to the PACU where she awoke without incident. She tolerated the procedure well. PLAN: The plan at this time is to obtain hemoglobin and hematocrit in the PACU, will plan to give the patient blood, consult Dr. Kusum [place] for medical management. Discontinue her drain and her Agrawal per my protocol. She will be out of bed on postop day one. Please note neural monitoring was stable throughout the procedure. Instrumentation utilized was Nuvasive for everything. Job ID: [id number] Dictated Date: 12/28/2016 16:59:36 Rn Home Care Date: 12/30/2016 09:12:04 / dannie
--- NOTE | 2016-12-30 10:53 | Progress Note-Hospitalist ---
Progress Note HPI/CC on Admission CC: s/p spine burst fracture repair POD # 1 HPI: This is an 81-year-old white female skilled nursing patient of Dr. Rondon the presents to the ICU following a very complex spine surgery following a burst fracture. Dr. Yanez performed the procedure in an uncomplicated manner but he shouldn't did lose 1 L of blood loss during the procedure so she was given 1 unit of packed red blood cell transfusion in 1 remains on hold. Hypocalcemia has been managed with calcium gluconate initiation but overall her dementia and high risk for postop pneumonia due to inability to get up and around because of the pain is certainly an issue. Her daughters at the bedside and is from out of town and not familiar with most of her medical problems except for her behavior issues that require skilled nursing placement. The priority is to get her back to [facility] where she is familiar with the staff in her room in order to facilitate recovery. Incentive spirometry has been ordered but due to dementia unsure if she is given a be able to perform that with any effort. I did order nebulizer treatments to try to expand lungs and outweigh and initiated physical therapy and occupational therapy along with getting out of bed in chair to help prevent a postop pneumonia. She reports spine pain but otherwise she does report heel pain which heal protectors are being ordered. Progress Notes/Assess & Plan Date Seen 12/30/16 Admission Dx/Process Assessment: Status post uncomplicated spine surgery to repair burst fracture Postop anemia due to acute blood loss received 1 unit of packed red blood cells Severe hypocalcemia requiring calcium gluconate initiation Dementia Anxiety Behavior problems Chronic constipation Osteoarthritis High risk for postop pneumonia Diagonsis/Assessment & Plan Chart Review: No fever Vitals stable Hgb 8.5 Ca++ 7.2 after calcium gluconate Patient Interview: Pt states that yesterday was very difficult for her, and she had great difficulty moving. Pt received Percocet hour ago, and will plan to time the Morphine with PT. Pt had a BM last night with a suppository. Physical exam stable. Pt asks if she will require rehab and Dr. Avery discusses pts options. Pt prefers returning to [facility]. AFVSS, Pleasant, chronically ill, daughter at bedside, slight cognitive decline noted RRR, CTAB diminished in bases No edema Laboratory Tests 12/30/16 06:19 Assessment: Status post uncomplicated spine surgery to repair burst fracture POD # 2 Postop anemia due to acute blood loss received 1 unit of packed red blood cells Severe hypocalcemia requiring calcium gluconate initiation and now improved Dementia Anxiety Behavior problems Chronic constipation Osteoarthritis High risk for postop pneumonia Plan: Move to 4th? Rehab eval Consult with Dr. Yanez regarding DC plan Incentive spirometry Nebulizer treatments DVT prophylaxis SCDs Transfuse as needed Monitor labs PT/OT Heel protectors Out of bed Pain control High risk for further complications due to dementia related issues Scribed by Isaac Howard under the direct supervision of Dr. Avery. JOE AVERY DO Dec 30, 2016 10:53
[2016-12-30] MEDS: morphine INJ 4 MG/ML 1 ML (VIAL/SYRINGE) IVP PRN ×2 (11:38→13:28)
[2016-12-30] MEDS: CYCLOBENZAPRINE 10 MG (FLEXERIL) TAB PO PRN ×3 (11:38→23:51)
--- NOTE | 2016-12-30 12:07 | Occupational Ther Daily Note ---
OT Current Status-Daily Note Subjective Pt. is crying out in pain. Reports 10/10. This is before and during movement. Family states that pt. has had pain meds 2 hours previous, and that it should be "peaked" at this time. OT asked nursing for more medication. Nursing to give pt. morphine and flexoril. Family requests that therapy coordinate pain meds and treatment with nursing, so that pt. has all pain medication that she needs before being made to move. Appearance Pt. in bed. [place]. Is able to smile at times at therapy. Very hesitant to work with OT. Mental Status/Objective Patient Orientation: Confused, Unable to Assess Functional [place] Measure 0=Not Assessed/NA 4=Minimal Assistance 1=Total Assistance 5=Supervision or Setup 2=Maximal Assistance 6=Modified Ada 3=Moderate Assistance 7=Complete Ada Pt. does require frequent cues and direction for skilled movement. Very anxious. ADL-Treatment Grooming (FIM): 1 (Pt. requires dependent assist while sitting to wash face, as she is unable to bring her hand up to hold washcloth. OT did this for her.) Lower Body Dressing (FIM): 1 (Pt. is dependent for donning/doffing of shoes.) Toileting (FIM): 1 (catheter) Transfers (B, C, W/C) (FIM): 1 (Pt. requires max assist x 3 for skilled instruction and movement to sit on side of bed from supine. Pt. very anxious. Requires increased time and instruction to complete tasks.) Other Treatment OT/PT co-treat due to amount of skilled instruction required. PT focused on transfers and upright balance while seated, and OT focused on ADL training, skilled instruction for back precautions, and UE placement during transfer. Noted that pt. had soaked gown with sweat. Changed gown for her. Applied podus boots to bilateral feet while supine. Pt. positioned and made comfortable. Noted that she was able to cough up phlegm when sitting on side of bed. Pt. and family educated on importance of getting upright to assist with clearing her lungs. Education OT Patient Education: Correct positioning, Instructions to caregiver, Modified ADL techniques, Progress toward Goal/Update tx plan, Purpose of tx/functional activities, Reviewed precautions, Rehab process, Transfer techniques Teaching Recipient: Patient, Family Teaching Methods: Demonstration, Discussion Response to Teaching: Verbalize Understanding, Return Demonstration OT Short Term Goals Short Term Goals 1=Demonstrate adherence to instructed precautions during ADL tasks. 2=Patient will verbalize/demonstrate understanding of assistive devices/ modifications for ADL. 3=Patient will improve strength/tolerance for activity to enable patient to perform ADL's. OT Penitentiary Goals Endless Track Vehicle Supervisor Goals Time Frame: Jan 12, 2017 Eating (FIM): 5 Grooming(FIM): 5 Upper Body Dressing(FIM): 4 Lower Body Dressing(FIM): 2 Toilet/Commode Transfer(FIM): 3 Additional Goals: 1-Demonstrate ADL Tasks, 2-Verbalize Understanding, 3- ImproveStrength/Sander 1=Demonstrate adherence to instructed precautions during ADL tasks. 2=Patient will verbalize/demonstrate understanding of assistive devices/ modifications for ADL. 3=Patient will improve strength/tolerance for activity to enable patient to perform ADL's. OT Education/Plan Problem List/Assessment Assessment: Decreased Activ Tolerance, Decreased Safety Aware, Decreased UE Strength, Dependent Transfers, Impaired Bed Mobility, Impaired Cognition, Impaired Coordination, Impaired Funct Balance, Impaired I ADL's, Impaired Self- Care Skills, Restricted Funct UE ROM Pt s/p L3-S1 PSIF with L4-S1 laminectomy. Pt dependent for mobility at this time. Pt to benefit from skilled OT intervention for ADL training, transfers, strengthening, and safety education to maximize level of function to allow safe return to NH. Discharge Recommendations Plan/Recommendations: Continue POC Therapy D/C Recommendations: 24 hr Supervision, Group Home (TCU/NH) Barriers to Progress pain level and cognition. Target Placement Pt. would benefit from returning to previous facility once pain is under control. This will allow her to be in familiar environment. Treatment Plan/Plan of Care Treatment,Training & Education: Yes Patient would benefit from OT for education, treatment and training to promote independence in ADL's, mobility, safety and/or upper extremity function for ADL' s. Plan of Care: ADL Retraining, Functional Mobility, UE Funct Exercise/Act Treatment Duration: Jan 12, 2017 Visits Per Week: 5 Agreement: Yes Rehab Potential: Guarded Time/GCodes Start Time: 11:10 Stop Time: 11:45 Total Time Billed (hr/min): 35 Billed Treatment Time 1, FA x 20 minutes (35 total) co-treat with PT Please see above note for designated roles. MARY ROLANDO OT Dec 30, 2016 12:07
--- NOTE | 2016-12-30 14:53 | Physical Therapy Daily Note ---
PT Daily Note-Current Subjective Pt laying sidelying in bed with OT present upon arrival. Per pt's family, pt had 2 pain meds a few hours previous to tx and should be at peak of effectiveness. Pt is reluctant to sit up with PT & OT even with encouragement and education on benefits of Therapy especially for deep breathing and prevention of pneumonia. Pt agrees to sitting at EOB for tx. Nursing to give Flexeril and Morphine per pt's request. Pain Numeric Pain Scale: 10-Worst Possible Pain Location: Posterior Location Body Site: Back Mental Status Patient Orientation: Person, Place, Situation Transfers Functional [place] Measure 0=Not Assessed/NA 4=Minimal Assistance 1=Total Assistance 5=Supervision or Setup 2=Maximal Assistance 6=Modified [place] 3=Moderate Assistance 7=Complete IndependenceIRFPAI Quality Coding Scale 6 Independent with activity with or without an assistive device 5 Patient requires set up or clean up by helper. Patient completes activity by themselves 4 Supervision or touching assist (CGA). Rembrandt provide cues , steadying assist 3 The helper provides less than half the effort to complete the activity 2 The helper provides more than half the effort to complete the activity 1 Dependent. The helper does all the effort to complete an activity 7 Patient refused to complete or attempt activity 9 The patient did not perform the activity before the current illness or injury 88 Not attempted due to Medical conditions or safety concerns Transfers (B, C, W/C) (FIM): 1 Scootin Rollin Supine to/from Sit: 1 Sit to/from Stand: 1 Treatments Pt reluctantly agrees to sitting at EOB with PT & OT. Nursing coming to bring Flexeril & Morphine to easy pt's pain in back. Pt transfers from sidelying to sitting EOB with PT & OT's assistance as well as VC for keeping back precautions. Pt sat at EOB for several minutes while OT assisted pt with washing face. Pt returned to bed in sidelying position to rest at end of tx with all needs met. Assessment Current Status: Fair Progress Pt is very anxious and in a lot of pain with movement. Pt able to sit at EOB with PT assistance to remain upright. PT Door To Door Salesperson Goals Door To Door Salesperson Goals PT Group Home Goals Time Frame: Jan 08, 2017 Transfers (B,C,W/C) (FIM): 2 Gait (FIM): 1 Gait distance (FIM): 1=up to 49 ft Distance: 5' Gait Level of Assist: 2 Gait Assistive Device: FWW PT Plan Problem List Problem List: Activity Tolerance, Functional Strength, Safety, Balance, Gait, Transfer, Bed Mobility, ROM Treatment/Plan Treatment Plan: Continue Plan of Care Treatment Plan: Bed Mobility, Education, Functional Activity Sander, Functional Strength, Gait, Safety, Therapeutic Exercise, Transfers Treatment Duration: Jan 08, 2017 Visits Per Week: 5-6 Minutes/Day (Sat/Pandey): PRN Safety Risks/Education Patient Education: Transfer Techniques, Reviewed Precautions, Correct Positioning, Safety Issues Teaching Recipient: Patient, Family Teaching Methods: Discussion Response to Teaching: Verbalize Understanding Time/GCodes Time In: 1115 Time Out: 1145 Total Billed Treatment Time: 30 Total Billed Treatment visit, FA (15m) Co-treat with OT (1115-45 for 30m total) PT (15m) OT (20m) PT worked on Transfers and upright balance while sitting while OT worked on ADL training, skilled instruction of back precautions and UE placement during transfer [employer]IO NARAYAN [employer] ENFORCEMENT OFFICER Dec 30, 2016 14:53
[2016-12-30] MEDS ORDERED: ACETAMINOPHEN 325 MG TABLET/CAPLET (TYLENOL) PO PRN (16:30)
[2016-12-30] MEDS ORDERED: RT-ALBUTEROL/IPRATROPIUM 3 ML (DUONEB) VIAL IH PRN (16:30)
[2016-12-30] MEDS ORDERED: RX-TRAMADOL 50 MG (ULTRAM) TAB PPK#4 PO SCH (17:00)
[2016-12-30] MEDS: FERROUS SULF 325 MG (IRON) TAB PO SCH (17:32)
[2016-12-30] MEDS ORDERED: NON-FORMULARY MEDICATION 1 EA EA (Clonazepam 0.25 MG) PO SCH (21:00)
[2016-12-30] MEDS ORDERED: NON-FORMULARY MEDICATION 1 EA EA (Polyethylene Glycol 3350 (Miralax) 17 GM) PO SCH (21:00)
[2016-12-30] MEDS ORDERED: ISOSORBIDE DINITRATE 30 MG PO SCH (21:00)
[2016-12-30] MEDS ORDERED: NON-FORMULARY MEDICATION 1 EA EA (Fluticasone Propionate (Flonase Allergy Relief) 1 SPRAY) NSEACH SCH (21:00)
--- NOTE | 2016-12-30 21:16 | Progress Note (SOAP) ---
Subjective Subjective/Events-last exam POD #2 s/p Lumbar decompression and fusion. Laying in bed flat this morning, pain controlled. Has not been using IS and we discussed this. Denies new symptoms today. Dr Yanez was contacted yesterday evening for pain control issues. She has been ok since Review of Systems General: No Chills, No Night Sweats HEENT: No Head Aches Pulmonary: No Dyspnea Cardiovascular: No: Chest Pain, Palpitations Gastrointestinal: No: Nausea, Vomiting Musculoskeletal: back pain Neurological: No: Numbness, Weakness Objective Exam Vital Signs Date Time Temp Pulse Resp B/P (MAP) Pulse Ox O2 Delivery O2 Flow Rate FiO2 12/30/16 20:08 97.2 92 22 122/60 100 Nasal Cannula 2.00 12/30/16 19:56 93 2.00 12/30/16 16:52 99.5 100 18 116/60 94 Nasal Cannula 2.00 12/30/16 15:22 91 2.00 12/30/16 11:10 94 2.00 12/30/16 11:10 99.2 95 20 103/49 93 Nasal Cannula 2.00 12/30/16 10:00 100 17 109/47 94 Nasal Cannula 2.00 12/30/16 09:00 104 15 122/54 93 Nasal Cannula 2.00 12/30/16 08:51 98.2 100 20 134/50 95 Nasal Cannula 2.00 12/30/16 08:30 Nasal Cannula 2.00 12/30/16 07:12 96 2.00 12/30/16 07:00 101 12/30/16 07:00 86 16 114/40 96 Nasal Cannula 3.00 12/30/16 06:00 94 11 113/46 95 Nasal Cannula 3.00 12/30/16 05:00 89 9 101/41 95 Nasal Cannula 3.00 12/30/16 04:27 Nasal Cannula 3.00 12/30/16 04:00 99 10 99/42 94 Nasal Cannula 3.00 12/30/16 03:00 112 23 125/67 93 Nasal Cannula 3.00 12/30/16 02:00 98 23 155/63 93 Nasal Cannula 3.00 12/30/16 01:19 113 12/30/16 01:00 95 9 136/57 95 Nasal Cannula 3.00 12/30/16 00:15 Nasal Cannula 3.00 12/30/16 00:12 98.9 95 15 100/38 96 Nasal Cannula 3.00 12/29/16 23:00 104 22 125/46 93 Nasal Cannula 3.00 12/29/16 22:00 103 16 105/43 93 Nasal Cannula 3.00 I & O 12/30/16 07:00 Intake Total 2250 ml Output Total 2700 ml Balance -450 ml Capillary Refill : Less Than 3 Seconds General Appearance: No Apparent Distress, WD/WN Neck: Supple Respiratory: No Accessory Muscle Use, No Respiratory Distress Cardiovascular: No Edema, Normal Peripheral Pulses Peripheral Pulses: 2+ Dorsalis Pedis (R), 2+ Left Dors-Pedis (L) Gastrointestinal: non tender, soft, no organomegaly, no pulsatile mass Extremity: Non Tender, No Calf Tenderness, No Pedal Edema Neurologic/Psychiatric: Alert, Oriented x3, No Motor/Sensory Deficits Results Lab Laboratory Tests 12/30/16 06:19: Hemoglobin 8.5L, Hematocrit 26L, Sodium Level 137, Potassium Level 3.9, Chloride Level 107, Carbon Dioxide Level 24, Anion Gap 6, Blood Urea Nitrogen 10 , Creatinine 0.60, Estimat Glomerular Filtration Rate > 60, BUN/Creatinine Ratio 17, Glucose Level 101, Calcium Level 7.2L 12/30/16 17:34: Glucometer 158H Microbiology 12/28/16 MRSA Screen - Final, Complete MRSA not isolated Assessment/Plan Assessment/Plan Assess & Plan/Chief Complaint Assessment: POD #2 s/p lumbar decompression and fusion ABL anemia hypocalcemia COPD osteoporosis Plan: monitor labs IS at bedise and encouraged OOB with PT drain output 400 - continue drain Clinical Quality Measures DVT/VTE Risk/Contraindication: Risk Factor Score Per Nursin RFS Level Per Nursing on Admit: 4+=Very High ARAVIND DELGADILLO Dec 30, 2016 21:16
[2016-12-30] MEDS: FLUTICASONE NASAL SPRAY (FLONASE) 16 GM BTL NS SCH (22:14)
[2016-12-30] MEDS: ISOSORBIDE DINITRATE 10 MG (ISORDIL) TABLET PO SCH (22:14)
[2016-12-30] MEDS: MONTELUKAST 10 MG (SINGULAIR) TAB PO SCH (22:15)
[2016-12-30] MEDS: clonazePAM 0.5 MG (KlonoPIN) TAB PO SCH (22:15)
[2016-12-31] VITALS (10 sets, daily range): BP systolic 105–145; BP diastolic 52–92
[2016-12-31 06:00] LABS: BASOPHILS % (AUTO) 0 % (0-10); EOSINOPHILS # (AUTO) 0.2 10^3/uL (0.0-0.3); EOSINOPHILS % (AUTO) 1 % (0-10); LYMPHOCYTES # (AUTO) 1.1 X 10^3 (1.0-4.0); LYMPHOCYTES % (AUTO) 8 % (12-44); MEAN CORPUSCULAR HEMOGLOBIN 30 PG (25-34); MEAN CORPUSCULAR HGB CONC 32 G/DL (32-36); MEAN CORPUSCULAR VOLUME 93 FL (80-99); MEAN PLATELET VOLUME 11.3 FL (7.4-10.4); MONOCYTES # (AUTO) 1.9 X 10^3 (0.0-1.0); MONOCYTES % (AUTO) 14 % (0-12); NEUTROPHILS # (AUTO) 10.7 X 10^3 (1.8-7.8); NEUTROPHILS % (AUTO) 77 % (42-75); PLATELET COUNT 153 10^3/uL (130-400); RED BLOOD COUNT 2.61 10^6/uL (4.35-5.85); RED CELL DISTRIBUTION WIDTH 14.8 % (10.0-14.5); WHITE BLOOD COUNT 13.8 10^3/uL (4.3-11.0)
[2016-12-31] MEDS: oxyCODONE/APAP 10/325MG (PERCOCET 10) TABLET PO PRN ×2 (06:03→12:52)
[2016-12-31] MEDS: MULTIVIT W/MINERALS TAB (THERAGRAN M) PO SCH (06:04)
[2016-12-31] MEDS: CYCLOBENZAPRINE 10 MG (FLEXERIL) TAB PO PRN (06:04)
[2016-12-31 06:17] LABS: ALANINE AMINOTRANSFERASE 20 U/L (0-55); ALBUMIN 2.4 G/DL (3.2-4.5); ANION GAP 6 MMOL/L (5-14); ASPARTATE AMINO TRANSFERASE 37 U/L (5-34); BILIRUBIN,TOTAL 0.3 MG/DL (0.1-1.0); BLOOD UREA NITROGEN 13 MG/DL (7-18); BUN/CREATININE RATIO 20; CALCIUM 7.3 MG/DL (8.5-10.1); CARBON DIOXIDE 23 MMOL/L (21-32); CHLORIDE 104 MMOL/L (98-107); CREATININE SERUM 0.66 MG/DL (0.60-1.30); GFR ESTIMATED > 60; GLUCOSE 145 MG/DL (70-105); POTASSIUM 4.5 MMOL/L (3.6-5.0); SODIUM 133 MMOL/L (135-145)
--- NOTE | 2016-12-31 06:26 | Progress Note (SOAP) ---
Subjective Subjective/Events-last exam CELSA. Patient is comfortable and talkative. PT was able to sit her up yesterday and goal today is to stand up. She has not been able to do so in two week since the fracture. She has had 3 BMs and she is passing gas and tolerating PO diet. She denies N/V/CP/SOB. Drain is in place with o/p of 100 cc last shift. Objective Exam Vital Signs Date Time Temp Pulse Resp B/P (MAP) Pulse Ox O2 Delivery O2 Flow Rate FiO2 12/31/16 04:00 99.1 105 19 123/66 98 Nasal Cannula 2.00 12/31/16 02:15 98.7 113 22 131/60 93 Nasal Cannula 2.00 12/31/16 00:54 100.1 110 26 110/57 92 Nasal Cannula 2.00 12/31/16 00:00 100.3 124 22 109/52 92 Nasal Cannula 2.00 12/30/16 21:00 94 2.00 12/30/16 20:08 97.2 92 22 122/60 100 Nasal Cannula 2.00 12/30/16 19:56 93 2.00 12/30/16 16:52 99.5 100 18 116/60 94 Nasal Cannula 2.00 12/30/16 15:22 91 2.00 12/30/16 11:10 94 2.00 12/30/16 11:10 99.2 95 20 103/49 93 Nasal Cannula 2.00 12/30/16 10:00 100 17 109/47 94 Nasal Cannula 2.00 12/30/16 09:00 104 15 122/54 93 Nasal Cannula 2.00 12/30/16 08:51 98.2 100 20 134/50 95 Nasal Cannula 2.00 12/30/16 08:30 Nasal Cannula 2.00 12/30/16 07:12 96 2.00 12/30/16 07:00 101 12/30/16 07:00 86 16 114/40 96 Nasal Cannula 3.00 I & O 12/31/16 07:00 Intake Total 675 ml Output Total 525 ml Balance 150 ml Capillary Refill : Less Than 3 Seconds Extremity: Other (SILT all dermatomes, moves all toes to command with limited ankle ankle dorsiflexion, SCDs in place, 2/4 DP, PT, wound is CDI) Results Lab Laboratory Tests 12/30/16 17:34: Glucometer 158H 12/31/16 05:10: White Blood Count 13.8H, Red Blood Count 2.61L, Hemoglobin 7.8L, Hematocrit 24L , Mean Corpuscular Volume 93, Mean Corpuscular Hemoglobin 30, Mean Corpuscular Hemoglobin Concent 32, Red Cell Distribution Width 14.8H, Platelet Count 153, Mean Platelet Volume 11.3H, Neutrophils (%) (Auto) 77H, Lymphocytes (%) (Auto) 8L, Monocytes (%) (Auto) 14H, Eosinophils (%) (Auto) 1, Basophils (%) (Auto) 0, Neutrophils # (Auto) 10.7H, Lymphocytes # (Auto) 1.1, Monocytes # (Auto) 1.9H, Eosinophils # (Auto) 0.2, Basophils # (Auto) 0.0 Microbiology 12/28/16 MRSA Screen - Final, Complete MRSA not isolated Assessment/Plan Assessment/Plan Assess & Plan/Chief Complaint ASSESSMENT: POD 3 s/p transpedicular decompression of L5 burst fracture with L3-pelvis fusion/PSIF PLAN: transfuse one unit PRBC this AM OOB with PT with brace on SCDs for DVT prophy d/c drain this afternoon at 1500 d/c to [facility] when ok with dr [place] Clinical Quality Measures DVT/VTE Risk/Contraindication: Risk Factor Score Per Nursin RFS Level Per Nursing on Admit: 4+=Very High ELBA DE LA CRUZ DO Dec 31, 2016 06:26
[2016-12-31] MEDS ORDERED: NS IV 500 ML 500 ML ONE (06:43)
[2016-12-31] MEDS: RT-ALBUTEROL SULF 2.5 MG/3 ML PRE-MIX VIAL IH SCH ×3 (06:46→20:33)
[2016-12-31] MEDS: RT-ADVAIR HFA 115/21 MCG PER PUFF IH SCH ×2 (06:49→20:34)
[2016-12-31] MEDS: UMECLIDINIUM BROMIDE (INCRUSE ELLIPTA) 7'S IH SCH (06:50)
[2016-12-31 07:05] LABS: BAND NEUTROPHILS 4 %; BASOPHILS % (MANUAL) 0 %; EOSINOPHILS % (MANUAL) 1 %; HYPOCHROMASIA SLIGHT; LYMPHOCYTES % (MANUAL) 5 %; NEUTROPHILS % (MANUAL) 81 %
[2016-12-31] MEDS: OMEGA 3 (FISH OIL) 1000 MG CAP PO SCH (08:26)
[2016-12-31] MEDS: LORATADINE (CLARITIN) 10 MG TAB PO SCH (08:26)
[2016-12-31] MEDS: SENNOSIDES 8.6 MG (SENOKOT) TAB PO SCH ×3 (08:26→20:46)
[2016-12-31] MEDS: FERROUS SULF 325 MG (IRON) TAB PO SCH ×3 (08:26→19:38)
[2016-12-31] MEDS: predniSONE 5 MG TAB PO SCH (08:26)
[2016-12-31] MEDS: FAMOTIDINE 20 MG (PEPCID) TABLET PO SCH (08:26)
[2016-12-31] MEDS: DOCUSATE SODIUM 100 MG (COLACE) CAP PO SCH ×2 (08:27→20:46)
[2016-12-31] MEDS: FUROSEMIDE 20 MG (LASIX) TAB PO SCH (08:27)
[2016-12-31] MEDS: POLYETHYLENE GLYCOL 17 GM (MIRALAX) PACK PO SCH ×2 (08:27→20:46)
[2016-12-31] MEDS ORDERED: SIMvastatin 10 MG (ZOCOR) TAB PO SCH ×2 (09:00→21:00)
[2016-12-31] MEDS ORDERED: MULTIVIT W/MINERALS TAB (THERAGRAN M) PO SCH (09:00)
[2016-12-31] MEDS ORDERED: NON-FORMULARY MEDICATION 1 EA EA (Fluticasone/Vilanterol (Breo Ellipta 200-25 Mcg INH) 1 P IH SCH (09:00)
[2016-12-31] MEDS ORDERED: NON-FORMULARY MEDICATION 1 EA EA (Fexofenadine HCl 180 MG) PO SCH (09:00)
[2016-12-31] MEDS ORDERED: TIOTROPIUM BROMIDE (SPIRIVA) 5'S INHALER IH SCH (09:00)
--- NOTE | 2016-12-31 09:16 | Physical Therapy Daily Note ---
PT Daily Note-Current Subjective Patient has had pain medication and muscle relaxant and continues to c/o 10/10 LBP and right hip pain. Pain Numeric Pain Scale: 10-Worst Possible Pain Location: Lower Location Body Site: Back Pain Description: Acute, Sharp Numeric Pain Scale: 10-Worst Possible Pain Location: Right Location Body Site: Hip Pain Description: Sharp Comment: pain medication and muscle relaxant issued at 0600 and not due until 1200 Appearance dependent assist to faisal shoes Mental Status Patient Orientation: Person, Time, Situation Attachments: Oxygen, Agrawal Catheter, IV Transfers Functional [place] Measure 0=Not Assessed/NA 4=Minimal Assistance 1=Total Assistance 5=Supervision or Setup 2=Maximal Assistance 6=Modified [place] 3=Moderate Assistance 7=Complete IndependenceIRFPAI Quality Coding Scale 6 Independent with activity with or without an assistive device 5 Patient requires set up or clean up by helper. Patient completes activity by themselves 4 Supervision or touching assist (CGA). [place] provide cues , steadying assist 3 The helper provides less than half the effort to complete the activity 2 The helper provides more than half the effort to complete the activity 1 Dependent. The helper does all the effort to complete an activity 7 Patient refused to complete or attempt activity 9 The patient did not perform the activity before the current illness or injury 88 Not attempted due to Medical conditions or safety concerns Transfers (B, C, W/C) (FIM): 1 Scootin Supine to/from Sit: 1 Sit to/from Stand: 1 Bed to/from Chair: 1 Patient holds right LE in flexed knee and hip position in stand with minimal weight bearing. Patient is very anxious and impulsive to sit and unaware of safety concerns. Exercises Supine Ex: Ankle pumps, Heel Slides Supine Reps: 15 (PROM right LE; AAROM left LE) Assessment Patient continues to tolerated minimal activity due to uncontrolled pain lower back and right hip. Patient requires dependent assist with all functional mobility. Plan [facility]. PT Gluten Settling Tender Goals Gluten Settling Tender Goals PT Snf Goals Time Frame: Jan 08, 2017 Transfers (B,C,W/C) (FIM): 2 Gait (FIM): 1 Gait distance (FIM): 1=up to 49 ft Distance: 5' Gait Level of Assist: 2 Gait Assistive Device: FWW PT Plan Treatment/Plan Treatment Plan: Continue Plan of Care Treatment Plan: Bed Mobility, Education, Functional Activity Sander, Functional Strength, Gait, Safety, Therapeutic Exercise, Transfers Treatment Duration: Jan 08, 2017 Visits Per Week: 5-6 Minutes/Day (Sat/Pandey): PRN Time/GCodes Time In: 820 Time Out: 843 Total Billed Treatment Time: 23 Total Billed Treatment 1 visit FA 15 min EX 8 min CARYL LION PT Dec 31, 2016 09:16
--- NOTE | 2016-12-31 10:40 | Progress Note-Hospitalist ---
Progress Note HPI/CC on Admission CC: s/p spine burst fracture repair POD # 1 HPI: This is an 81-year-old white female [facility] patient of Dr. Rondon the presents to the ICU following a very complex spine surgery following a burst fracture. Dr. Yanez performed the procedure in an uncomplicated manner but he shouldn't did lose 1 L of blood loss during the procedure so she was given 1 unit of packed red blood cell transfusion in 1 remains on hold. Hypocalcemia has been managed with calcium gluconate initiation but overall her dementia and high risk for postop pneumonia due to inability to get up and around because of the pain is certainly an issue. Her daughters at the bedside and is from out of town and not familiar with most of her medical problems except for her behavior issues that require m[facility] placement. The priority is to get her back to [facility] where she is familiar with the staff in her room in order to facilitate recovery. Incentive spirometry has been ordered but due to dementia unsure if she is given a be able to perform that with any effort. I did order nebulizer treatments to try to expand lungs and outweigh and initiated physical therapy and occupational therapy along with getting out of bed in chair to help prevent a postop pneumonia. She reports spine pain but otherwise she does report heel pain which heal protectors are being ordered. Progress Notes/Assess & Plan Date Seen 12/31/16 Admission Dx/Process Assessment: Status post uncomplicated spine surgery to repair burst fracture Postop anemia due to acute blood loss received 1 unit of packed red blood cells Severe hypocalcemia requiring calcium gluconate initiation Dementia Anxiety Behavior problems Chronic constipation Osteoarthritis High risk for postop pneumonia Diagonsis/Assessment & Plan Chart Review: Max fever 100.5, Vitals stable, WBC 13.8, Hgb 7.8. Reviewed Dr. Yanez note: she had 3 BM's, drain in place with 100cc output, he ordered one unit of blood. Will DC drain at 1500 today. PT Review: Pt is in pain while going through therapy. Pt complains while going through minimal movement of legs in bed. Pt is receiving blood transfusion currently. SW Review: Pt is going to [facility]. Pt will probably not fully recover. Pt just had blood transfusion Patient Interview: Pt was told that blood transfusion should help pt recover. Pt denies using a cath normally. Pt daughter states pt uses the restroom frequently so until she is able to get up and around she wants the Agrawal catheter to remain which I am unsure that would be the plan from orthostatic and point since that is an infection risk. Physical exam was stable. Pt lungs are clear. Pt daughter states she had a recent BM and may need to have another BM soon. I checked with the nurse and she's had multiple bowel movements since initiated the regimen so unsure of what information at daughter is receiving Pt will go to [facility]. Pt daughter asked when she will be DC and she was told she will be DC when ready and that this will be a long recovery. Scribed by Michael Rausch under the direct supervision of Dr. Avery. AFVSS, [place], chronically ill, daughter at bedside, sedated for muscle relaxant RRR, CTAB diminished in bases No edema Laboratory Tests 12/31/16 05:10 Assessment: Status post uncomplicated extensive spine surgery to repair burst fracture POD # 3 Postop anemia due to acute blood loss received 1 unit of packed red blood cells in OR and another today just completed Severe hypocalcemia requiring calcium gluconate initiation and now improved Dementia Anxiety Behavior problems Chronic constipation Osteoarthritis High risk for postop pneumonia COPD Hyponatremia mild Plan: Incentive spirometry Nebulizer treatments DVT prophylaxis SCDs Monitor labs PT/OT Heel protectors Out of bed Pain control High risk for further complications due to dementia related issues DC drain per Dr Beau PETE planned for tomorrow but long recovery expected and unsure of complete recover ability JOE AVERY DO Dec 31, 2016 10:40
--- NOTE | 2016-12-31 13:22 | Occupational Ther Daily Note ---
OT Current Status-Daily Note Subjective Pt lying in bed, nrsg present in room. Pt stated to nrsg that her pain was a 1/ 10 and that the doctor said that she was to get pain meds. Nrsg gave pt meds then left room. Daughter came into room and pt then stated that since the HOB was up that it stretched her hip and pain was now 8/10. GOMEZ reminded pt that nrsg had just given her pain meds and that she had rated pain at 1/10 to nrsg. Pt then agreed to let GOMEZ work with pt. Pt had not eaten lunch yet so GOMEZ was going to work on self feeding. Pt stated that her daughter's just put food in her mouth. GOMEZ Mental Status/Objective Functional [place] Measure 0=Not Assessed/NA 4=Minimal Assistance 1=Total Assistance 5=Supervision or Setup 2=Maximal Assistance 6=Modified [place] 3=Moderate Assistance 7=Complete [place] ADL-Treatment Pt required max A x2 for going from supine to sitting then pt sat EOB with assist x2 while nrsg changed drainage on lower back. Max A x4 to transfer from EOB to recliner. Pt needed constant verbal/physical cues to keep from pushing backward. Pt c/o pain in hips and educated pt on breathing technique to help with anxiety and pain. Then started working on self feeding. Pt requested that GOMEZ feed her so she could enjoy her meal. GOMEZ encouraged pt to feed herself at least 10 bites and drink her milk. Pt does demonstrate UE tremors with motoric task though was able to hold onto spoon and bring to mouth with assist to decrease tremors after GOMEZ scooped food onto spoon. Pt was able to bring milk carton and juice glass to mouth by self. Pt took increased time to complete therapy due to anxiety and constant reassurance and explanation of what was happening. Both daughter's present in room. After therapy, pt sitting in recliner with lunch in front of her and both daughters in room. All needs met in room. OT Short Term Goals Short Term Goals 1=Demonstrate adherence to instructed precautions during ADL tasks. 2=Patient will verbalize/demonstrate understanding of assistive devices/ modifications for ADL. 3=Patient will improve strength/tolerance for activity to enable patient to perform ADL's. OT Information Developer Goals Information Developer Goals Time Frame: Jan 12, 2017 Eating (FIM): 5 Grooming(FIM): 5 Upper Body Dressing(FIM): 4 Lower Body Dressing(FIM): 2 Toilet/Commode Transfer(FIM): 3 Additional Goals: 1-Demonstrate ADL Tasks, 2-Verbalize Understanding, 3- ImproveStrength/Sander 1=Demonstrate adherence to instructed precautions during ADL tasks. 2=Patient will verbalize/demonstrate understanding of assistive devices/ modifications for ADL. 3=Patient will improve strength/tolerance for activity to enable patient to perform ADL's. OT Education/Plan Problem List/Assessment Pt s/p L3-S1 PSIF with L4-S1 laminectomy. Pt dependent for mobility at this time. Pt to benefit from skilled OT intervention for ADL training, transfers, strengthening, and safety education to maximize level of function to allow safe return to NH. Discharge Recommendations Plan/Recommendations: Continue POC Treatment Plan/Plan of Care Patient would benefit from OT for education, treatment and training to promote independence in ADL's, mobility, safety and/or upper extremity function for ADL' s. Plan of Care: ADL Retraining, Functional Mobility, UE Funct Exercise/Act Treatment Duration: Jan 12, 2017 Visits Per Week: 5 Agreement: Yes Rehab Potential: Guarded Time/GCodes Start Time: 12:50 Stop Time: 13:50 Total Time Billed (hr/min): 60 Billed Treatment Time 1 visit-FA 4 (60 min) WINNIE BERMUDEZ Dec 31, 2016 13:22
[2016-12-31] MEDS: ISOSORBIDE DINITRATE 10 MG (ISORDIL) TABLET PO SCH (20:46)
[2016-12-31] MEDS: clonazePAM 0.5 MG (KlonoPIN) TAB PO SCH (20:46)
[2016-12-31] MEDS: MONTELUKAST 10 MG (SINGULAIR) TAB PO SCH (20:46)
[2016-12-31] MEDS: FLUTICASONE NASAL SPRAY (FLONASE) 16 GM BTL NS SCH (20:47)
[2017-01-01] VITALS: BP 103/54
[2017-01-01] MEDS: oxyCODONE/APAP 10/325MG (PERCOCET 10) TABLET PO PRN ×3 (00:09→13:17)
[2017-01-01 04:42] LABS: BASOPHILS % (AUTO) 0 % (0-10); EOSINOPHILS # (AUTO) 0.7 10^3/uL (0.0-0.3); EOSINOPHILS % (AUTO) 7 % (0-10); LYMPHOCYTES # (AUTO) 1.2 X 10^3 (1.0-4.0); LYMPHOCYTES % (AUTO) 13 % (12-44); MEAN CORPUSCULAR HEMOGLOBIN 29 PG (25-34); MEAN CORPUSCULAR HGB CONC 33 G/DL (32-36); MEAN CORPUSCULAR VOLUME 90 FL (80-99); MEAN PLATELET VOLUME 10.5 FL (7.4-10.4); MONOCYTES # (AUTO) 1.3 X 10^3 (0.0-1.0); MONOCYTES % (AUTO) 14 % (0-12); NEUTROPHILS # (AUTO) 6.1 X 10^3 (1.8-7.8); NEUTROPHILS % (AUTO) 66 % (42-75); PLATELET COUNT 157 10^3/uL (130-400); RED BLOOD COUNT 2.82 10^6/uL (4.35-5.85); RED CELL DISTRIBUTION WIDTH 14.9 % (10.0-14.5); WHITE BLOOD COUNT 9.3 10^3/uL (4.3-11.0)
[2017-01-01 05:12] LABS: ALANINE AMINOTRANSFERASE 19 U/L (0-55); ALBUMIN 2.5 G/DL (3.2-4.5); ANION GAP 6 MMOL/L (5-14); ASPARTATE AMINO TRANSFERASE 31 U/L (5-34); BILIRUBIN,TOTAL 0.5 MG/DL (0.1-1.0); BLOOD UREA NITROGEN 13 MG/DL (7-18); BUN/CREATININE RATIO 21; CALCIUM 7.5 MG/DL (8.5-10.1); CARBON DIOXIDE 25 MMOL/L (21-32); CHLORIDE 102 MMOL/L (98-107); CREATININE SERUM 0.63 MG/DL (0.60-1.30); GFR ESTIMATED > 60; GLUCOSE 127 MG/DL (70-105); POTASSIUM 4.3 MMOL/L (3.6-5.0); SODIUM 133 MMOL/L (135-145)
[2017-01-01] MEDS: MULTIVIT W/MINERALS TAB (THERAGRAN M) PO SCH (06:22)
[2017-01-01] MEDS: FERROUS SULF 325 MG (IRON) TAB PO SCH ×2 (06:22→11:56)
[2017-01-01] MEDS: RT-ALBUTEROL SULF 2.5 MG/3 ML PRE-MIX VIAL IH SCH (07:14)
[2017-01-01] MEDS: RT-ADVAIR HFA 115/21 MCG PER PUFF IH SCH (07:14)
[2017-01-01] MEDS: UMECLIDINIUM BROMIDE (INCRUSE ELLIPTA) 7'S IH SCH (07:15)
[2017-01-01] MEDS: FAMOTIDINE 20 MG (PEPCID) TABLET PO SCH (08:15)
[2017-01-01] MEDS: OMEGA 3 (FISH OIL) 1000 MG CAP PO SCH (08:15)
[2017-01-01] MEDS: LORATADINE (CLARITIN) 10 MG TAB PO SCH (08:16)
[2017-01-01] MEDS: FUROSEMIDE 20 MG (LASIX) TAB PO SCH (08:16)
[2017-01-01] MEDS: predniSONE 5 MG TAB PO SCH (08:17)
[2017-01-01] MEDS: DOCUSATE SODIUM 100 MG (COLACE) CAP PO SCH (08:18)
[2017-01-01] MEDS: SENNOSIDES 8.6 MG (SENOKOT) TAB PO SCH (08:18)
[2017-01-01] MEDS: POLYETHYLENE GLYCOL 17 GM (MIRALAX) PACK PO SCH (08:19)
--- NOTE | 2017-01-01 11:15 | Discharge Summary-Hospitalist ---
Diagnosis/Chief Complaint Date of Admission Dec 28, 2016 at 10:30 Date of Discharge Admission Diagnosis Assessment: Status post uncomplicated spine surgery to repair burst fracture Postop anemia due to acute blood loss received 1 unit of packed red blood cells Severe hypocalcemia requiring calcium gluconate initiation Dementia Anxiety Behavior problems Chronic constipation Osteoarthritis High risk for postop pneumonia Discharge Diagnosis Assessment: Status post uncomplicated extensive spine surgery to repair burst fracture POD # 4 Postop anemia due to acute blood loss received 1 unit of packed red blood cells in OR and another yesterday just completed Severe hypocalcemia requiring calcium gluconate initiation and now improved Dementia Anxiety Behavior problems Chronic constipation resolved Osteoarthritis High risk for postop pneumonia COPD Hyponatremia mild Chart Review: Max fever 100.5, Vitals stable, WBC 13.8, Hgb 7.8. Reviewed Dr. Yanez note: she had 3 BM's, drain in place with 100cc output, he ordered one unit of blood. Will DC drain at 1500 today. PT Review: Pt is in pain while going through therapy. Pt complains while going through minimal movement of legs in bed. Pt is receiving blood transfusion currently. SW Review: Pt is going to [facility]. Pt will probably not fully recover. Pt just had blood transfusion Patient Interview: Pt was told that blood transfusion should help pt recover. Pt denies using a cath normally. Pt daughter states pt uses the restroom frequently so until she is able to get up and around she wants the Agrawal catheter to remain which I am unsure that would be the plan from orthostatic and point since that is an infection risk. Physical exam was stable. Pt lungs are clear. Pt daughter states she had a recent BM and may need to have another BM soon. I checked with the nurse and she's had multiple bowel movements since initiated the regimen so unsure of what information at daughter is receiving Pt will go to [facility]. Pt daughter asked when she will be DC and she was told she will be DC when ready and that this will be a long recovery. Scribed by Michael Rausch under the direct supervision of Dr. Avery. AFVSS, [place], chronically ill, daughter at bedside, sedated for muscle relaxant RRR, CTAB diminished in bases No edema Laboratory Tests 12/31/16 05:10 Assessment: Status post uncomplicated extensive spine surgery to repair burst fracture POD # 3 Postop anemia due to acute blood loss received 1 unit of packed red blood cells in OR and another today just completed Severe hypocalcemia requiring calcium gluconate initiation and now improved Dementia Anxiety Behavior problems Chronic constipation Osteoarthritis High risk for postop pneumonia COPD Hyponatremia mild Plan: Incentive spirometry Nebulizer treatments DVT prophylaxis SCDs Monitor labs PT/OT Heel protectors Out of bed Pain control High risk for further complications due to dementia related issues DC drain per Dr Yanez DC planned for tomorrow but long recovery expected and unsure of complete recover ability Reason Hospital Visit/Course CC: s/p spine burst fracture repair POD # 1 HPI: This is an 81-year-old white female [facility] patient of Dr. Rondon the presents to the ICU following a very complex spine surgery following a burst fracture. Dr. Yanez performed the procedure in an uncomplicated manner but he shouldn't did lose 1 L of blood loss during the procedure so she was given 1 unit of packed red blood cell transfusion in 1 remains on hold. Hypocalcemia has been managed with calcium gluconate initiation but overall her dementia and high risk for postop pneumonia due to inability to get up and around because of the pain is certainly an issue. Her daughters at the bedside and is from out of town and not familiar with most of her medical problems except for her behavior issues that require fci placement. The priority is to get her back to [facility] where she is familiar with the staff in her room in order to facilitate recovery. Incentive spirometry has been ordered but due to dementia unsure if she is given a be able to perform that with any effort. I did order nebulizer treatments to try to expand lungs and outweigh and initiated physical therapy and occupational therapy along with getting out of bed in chair to help prevent a postop pneumonia. She reports spine pain but otherwise she does report heel pain which heal protectors are being ordered. Note form 01/01/17 Chart Review: No fever, WBC normal 9.3, Hgb 8.3 after one unit of blood yesterday. Spoke with Dr. Yanez and we will DC today to [facility] but poor prognosis remains. SW Review: Pt daughter is reasonable but has concerns about her care. Patient Interview: Pt will be DC today. Pt is no longer running a fever and Dr. Yanez has been told. Pt daughter asked about pt muscle relaxers and pain meds. Pt daughter was informed that this will be a slow and long recovery. Pt daughter is concerned about having adequate staff at [facility] and she was told that they have been informed of her mom and they are prepared to accept her. Scribed by Michael Rausch under the direct supervision of Dr. Avery. No fever, vital signs stable, pleasant but sedated in chair, chronically ill, pale but does become more alert as the interview ensued Regular rate and rhythm, clear to auscultation bilaterally but diminished breath sounds in the bases due to lack of cooperation because of sedation but improving as the exam progressed No edema Hospital course: Patient a lengthy hospital course she underwent lumbar spine surgery due to a burst fracture that was so incapacitating that she could no longer manage the pain so she underwent the procedure lost 1000 mL of blood and was given 1 unit of blood in the OR. She was monitored in the ICU due to the severe debilitated status remains DO NOT RESUSCITATE. Overall she progressed enough to be transferred to the floor vital signs remained stable although low- grade fever persisted I did initiate albuterol treatments and incentive spirometer and I did initiate aggressive bowel regimen that was successful the last several days prior to discharge. I did confer with the daughter and Dr. Yanez and Jason Ibarra in depth every day during this hospital stay and updated them on the guarded prognosis long-term that she has but full support will be provided to try to improve quality of life but this will be a long recovery unsure if this is going to be successful and able to be fully recovered considering the severe debility that she has on a chronic basis that has required fci placement in the severe dementia that she has also. Overall we tried to supporters much is possible she rained afebrile at day of discharge and labs remained stable and hemoglobin was adequate after 2 units of blood during hospital stay for her to be able to be maintained on oral iron if she was on at home to recover normal hemoglobin status for her. Guarded prognosis remains and difficult to ascertain if any recovery will be managed but everything should proceed to support this patient to be able to have that opportunity. Discharge Summary Discharge Physical Examination Allergies: Coded Allergies: nitrofurantoin (Verified Allergy, Unknown, 12/24/16) Vitals & I&Os Vital Signs Date Time Temp Pulse Resp B/P (MAP) Pulse Ox O2 Delivery O2 Flow Rate FiO2 01/01/17 07:19 92 1.00 01/01/17 00:00 98.6 93 20 103/54 Nasal Cannula Hospital Course Labs (last 24 hrs) Laboratory Tests 01/01/17 04:30: White Blood Count 9.3, Red Blood Count 2.82L, Hemoglobin 8.3L, Hematocrit 25L, Mean Corpuscular Volume 90, Mean Corpuscular Hemoglobin 29, Mean Corpuscular Hemoglobin Concent 33, Red Cell Distribution Width 14.9H, Platelet Count 157, Mean Platelet Volume 10.5H, Neutrophils (%) (Auto) 66, Lymphocytes (%) (Auto) 13 , Monocytes (%) (Auto) 14H, Eosinophils (%) (Auto) 7, Basophils (%) (Auto) 0, Neutrophils # (Auto) 6.1, Lymphocytes # (Auto) 1.2, Monocytes # (Auto) 1.3H, Eosinophils # (Auto) 0.7H, Basophils # (Auto) 0.0, Sodium Level 133L, Potassium Level 4.3, Chloride Level 102, Carbon Dioxide Level 25, Anion Gap 6, Blood Urea Nitrogen 13, Creatinine 0.63, Estimat Glomerular Filtration Rate > 60, BUN/ Creatinine Ratio 21, Glucose Level 127H, Calcium Level 7.5L, Total Bilirubin 0.5 , Aspartate Amino Transf (AST/SGOT) 31, Alanine Aminotransferase (ALT/SGPT) 19, Alkaline Phosphatase 81, Total Protein 5.0L, Albumin 2.5L Microbiology 12/28/16 MRSA Screen - Final, Complete MRSA not isolated Pending Labs Discharge Home Medications: Active Scripts Active Docusate Sodium 100 Mg Capsule 100 Mg PO BID 30 Days Bisacodyl 5 Mg Tablet.dr 5-10 Mg PO BID PRN 30 Days Oxycodone-Acetaminophen 10-325 (Oxycodone HCl/Acetaminophen) 1 Each Tablet 1-2 Tab PO Q6H PRN Tramadol HCl 50 Mg Tablet 100 Mg PO QID TAKES 2 (50 MG) TABLETS Clonazepam 0.25 Mg Tab.rapdis 0.25 Mg PO HS Reported Santyl (Collagenase) 30 Gm Oint..gm. TP DAILY PRN apply to left anterior ankle, vascular ulcer cleanse with NS, pat dry, apply Santyl and collagen to center of wound bed, cover with foam pad and secure with tape, Spiriva (Tiotropium [place]) 1 Inh Aerp 1 Puff IH DAILY Simvastatin 10 Mg Tablet 10 Mg PO DAILY Prednisone 5 Mg Tablet 5 Mg PO DAILY Osteo Bi-Flex Tablet (Glucosamine/D3/Boswellia Carmela) 1 Each Tablet 2 Tab PO DAILY Ondansetron HCl 4 Mg Tablet 4 Mg PO Q6H PRN Multivitamins with Minerals (Multivitamin with Minerals) 1 Each Tablet 1 Tab PO DAILY Montelukast Sodium 10 Mg Tablet 10 Mg PO HS Miralax (Polyethylene Glycol 3350) 119 Gm Powder 17 Gm PO BID Melatonin 3 mg Tablet (Melatonin/Pyridoxine) 1 Each Tablet 6 Mg PO HS TAKES 2 (3 MG) TABLETS Lasix (Furosemide) 20 Mg Tablet 20 Mg PO DAILY Isosorbide Dinitrate 30 Mg Tablet 30 Mg PO HS Guaifenesin 400 Mg Tablet 1,200 Mg PO BID TAKES 3 (400 MG) TABLETS Flonase Allergy Relief (Fluticasone Propionate) 9.9 Ml [place].susp 1 [place] NSEACH HS Fish Oil 1,000 mg Capsule ([place] 3 Polyunsat Fatty Acids) 1,000 Mg Cap 1,000 Mg PO DAILY Fexofenadine HCl 180 Mg Tablet 180 Mg PO DAILY Ferrous Sulfate 325 Mg Tablet 325 Mg PO TID Annita-C 1,000 mg Tablet (Ascorbate Calcium/Bioflavonoid) 1 Each Tablet 1,000 Mg PO DAILY Iprat-Albut 0.5-3(2.5) mg/3 ml (Ipratropium/Albuterol Sulfate) 3 Ml Ampul.neb 3 Ml IH Q8H PRN Prolia (Denosumab) 60 Mg/1 Ml Disp.syrin 60 Mg SQ EVERY 180 DAYS Cyanocobalamin Injection (Cyanocobalamin) 1,000 Mcg/Ml Inj 1,000 Mcg IJ WEEK TAKES ON WEDNESDAY' Culturelle (Lactobacillus Rhamnosus GG) 1 Each Capsule 1 Cap PO DAILY Cranberry Tablet (Cranberry Conc/C/Bacill Coag) 1 Each Tablet 2 Tab PO DAILY Celexa (Citalopram Hydrobromide) 20 Mg Tablet 20 Mg PO HS TAKES IN CONJUNCTION WITH CITALOPRAM 10MG FOR A TOTAL DOSE OF 30MG Celexa (Citalopram Hydrobromide) 10 Mg Tablet 10 Mg PO HS TAKES IN CONJUNCTION WITH CITALOPRAM 20MG FOR A TOTAL DOSE OF 30MG Calcium 600 + Vit D 200 Tablet (Calcium Carbonate/Vitamin D3) 1 Each Tablet 1 Tab PO DAILY Breo Ellipta 200-25 Mcg INH (Fluticasone/Vilanterol) 1 Each Blst.w.dev 1 Puff IH DAILY B-50 Complex (Vitamin B Complex) 1 Each Tablet.er 1 Tab PO DAILY Artificial Tears Drops (Peg 400/Hypromellose/Glycerin) 15 Ml Drops 1 Drop OU Q4H PRN Acetaminophen 325 Mg Tablet 325 Mg PO Q4H PRN DO NOT EXCEED 3GM IN 24 HOURS Instructions to patient/family Please see electonic discharge instructions given to patient. Clinical Quality Measures DVT/VTE Risk/Contraindication: Risk Factor Score Per Nursin RFS Level Per Nursing on Admit: 4+=Very High JOE AVERY DO Jan 01, 2017 11:15
[2017-01-01 12:00] VITALS: BP 120/61
[2017-01-01] MEDS: BISACODYL 10 MG SUPP (DULCOLAX) PR PRN (12:02)
--- NOTE | 2017-01-01 12:10 | Physical Therapy Daily Note ---
PT Daily Note-Current Subjective Patient is asleep in recliner with family present. Patient wakes easily and agrees to therapy. Pain Numeric Pain Scale: 10-Worst Possible Pain Location: Lower Location Body Site: Back Pain Description: Pressure, Acute Mental Status Patient Orientation: Person, Time, Situation Attachments: Oxygen, Agrawal Catheter Transfers Functional [place] Measure 0=Not Assessed/NA 4=Minimal Assistance 1=Total Assistance 5=Supervision or Setup 2=Maximal Assistance 6=Modified [place] 3=Moderate Assistance 7=Complete IndependenceIRFPAI Quality Coding Scale 6 Independent with activity with or without an assistive device 5 Patient requires set up or clean up by helper. Patient completes activity by themselves 4 Supervision or touching assist (CGA). Wendel provide cues , steadying assist 3 The helper provides less than half the effort to complete the activity 2 The helper provides more than half the effort to complete the activity 1 Dependent. The helper does all the effort to complete an activity 7 Patient refused to complete or attempt activity 9 The patient did not perform the activity before the current illness or injury 88 Not attempted due to Medical conditions or safety concerns Transfers (B, C, W/C) (FIM): 2 Scootin Bed to/from Chair: 2 slide board transfer performed with patient recliner to drop arm commode with max assist x 1 and CGA x 1; Patient was able to assist with this transfer with minimal discomfort. Assessment Patient requires time to complete all functional tasks due to LBP and weakness. This PT recommends staff utilize a slide board for transfers for safety and comfort of patient and safety of staff. Patient has been requiring assist x 3- 4 with SPT with patient experiencing increase in back pain and right LE pain. This PT also recommends to NOT use a sit to stand lift or nicolas lift to prevent possible negative side effects the pressure the slings could place on patient's back. With a slide board, drop arm commodes and w/c are recommended for safety and ease of use. Patient tolerated the slide board transfers without difficulty. PT Employee Relations Assistant Goals Employee Relations Assistant Goals PT Correction Goals Time Frame: Jan 08, 2017 Transfers (B,C,W/C) (FIM): 2 Gait (FIM): 1 Gait distance (FIM): 1=up to 49 ft Distance: 5' Gait Level of Assist: 2 Gait Assistive Device: FWW PT Plan Treatment/Plan Treatment Plan: Discontinue PT Treatment Plan: Bed Mobility, Education, Functional Activity Sander, Functional Strength, Gait, Safety, Therapeutic Exercise, Transfers Treatment Duration: Jan 08, 2017 Visits Per Week: 5-6 Minutes/Day (Sat/Pandey): PRN Safety Risks/Education Patient Education: Transfer Techniques, Safety Issues Teaching Recipient: Patient, Family Teaching Methods: Demonstration, Discussion Response to Teaching: Verbalize Understanding, Return Demonstration Discharge Recommendations Therapy D/C Recommendations: Retirement Placement, Senior Living (TCU/NH) Equpiment Recommendations-D/C: Provided by [facility]Facility (slide board, drop arm commode and w/c) Time/GCodes Time In: 1130 Time Out: 1200 Total Billed Treatment Time: 30 Total Billed Treatment 1 visit FA x 2 30 min CARYL LION PT Jan 01, 2017 12:10
[2017-01-01] MEDS ORDERED: TRAM50TA2 PO (12:47)
[2017-01-01] MEDS ORDERED: BISA5TAB8 PO (12:47)
[2017-01-01] MEDS ORDERED: CLON0.252 PO (12:47)
[2017-01-01] MEDS ORDERED: OXYC-465 PO (12:47)
[2017-01-01] MEDS ORDERED: DOCU100C37 PO (12:47)
--- NOTE | 2017-01-01 12:50 | Discharge Inst-Skilled Nursing ---
Discharge Inst-Skilled NF Chief Complaint CC: s/p spine burst fracture repair POD # 1 HPI: This is an 81-year-old white female half-way patient of Dr. Rondon the presents to the ICU following a very complex spine surgery following a burst fracture. Dr. Yanez performed the procedure in an uncomplicated manner but he shouldn't did lose 1 L of blood loss during the procedure so she was given 1 unit of packed red blood cell transfusion in 1 remains on hold. Hypocalcemia has been managed with calcium gluconate initiation but overall her dementia and high risk for postop pneumonia due to inability to get up and around because of the pain is certainly an issue. Her daughters at the bedside and is from out of town and not familiar with most of her medical problems except for her behavior issues that require half-way placement. The priority is to get her back to [facility] where she is familiar with the staff in her room in order to facilitate recovery. Incentive spirometry has been ordered but due to dementia unsure if she is given a be able to perform that with any effort. I did order nebulizer treatments to try to expand lungs and outweigh and initiated physical therapy and occupational therapy along with getting out of bed in chair to help prevent a postop pneumonia. She reports spine pain but otherwise she does report heel pain which heal protectors are being ordered. Note form 01/01/17 Chart Review: No fever, WBC normal 9.3, Hgb 8.3 after one unit of blood yesterday. Spoke with Dr. Yanez and we will DC today to [facility] but poor prognosis remains. SW Review: Pt daughter is reasonable but has concerns about her care. Patient Interview: Pt will be DC today. Pt is no longer running a fever and Dr. Yanez has been told. Pt daughter asked about pt muscle relaxers and pain meds. Pt daughter was informed that this will be a slow and long recovery. Pt daughter is concerned about having adequate staff at [facility] and she was told that they have been informed of her mom and they are prepared to accept her. Scribed by Michael Rausch under the direct supervision of Dr. Avery. Patient Instructions Patient Problems: Lumbar spine surgery Severe debility COPD Anemia Goal: Strengthen Consult/Follow Up/Orders Follow Up Appt.: Dr Yanez as scheduled for assessment Skilled NF Admit to: [facility] Certification (SNF) I certify that SNF services are required to be given on an inpatient basis because of the above named patient's need for [facility] care on a continuing basis for the conditions(s) for which he/she was receiving inpatient hospital services prior to his/her transfer to the SNF. Half-Way Facility Order: Nursing Services, [facility] Press Feeder-Evaluate & Treat, Physical Therapy-Evaluate & Treat, Speech Language-Evaluate & Treat Discharge Diet: No Restrictions Daily Activity as Tolerated: Yes New & Resume Previous Orders New & Resume Previous Orders Don't bend from a standing position, 10 pounds lift restriction. May push or pull only for transfer. Keep incision covered and dry until follow-up appointment Minh tim okay the use Rossy Avery Jan 01, 2017 12:48 ROSSY AVERY DO Jan 01, 2017 12:50
--- NOTE | 2017-01-01 13:50 | Physical Therapy Daily Note ---
PT Daily Note-Current Pain Numeric Pain Scale: 10-Worst Possible Pain Location: Lower Location Body Site: Back Pain Description: Acute Mental Status Patient Orientation: Person, Time, Situation Attachments: Oxygen, Agrawal Catheter Transfers Functional [place] Measure 0=Not Assessed/NA 4=Minimal Assistance 1=Total Assistance 5=Supervision or Setup 2=Maximal Assistance 6=Modified [place] 3=Moderate Assistance 7=Complete IndependenceIRFPAI Quality Coding Scale 6 Independent with activity with or without an assistive device 5 Patient requires set up or clean up by helper. Patient completes activity by themselves 4 Supervision or touching assist (CGA). [place] provide cues , steadying assist 3 The helper provides less than half the effort to complete the activity 2 The helper provides more than half the effort to complete the activity 1 Dependent. The helper does all the effort to complete an activity 7 Patient refused to complete or attempt activity 9 The patient did not perform the activity before the current illness or injury 88 Not attempted due to Medical conditions or safety concerns Transfers (B, C, W/C) (FIM): 1 Scootin Rollin Supine to/from Sit: 1 Sit to/from Stand: 1 Bed to/from Chair: 1 Patient unable to actively assist with slide board transfer this p.m. requiring dependent x 2 assist with SPT with gait belt and back brace in place. Assessment Patient tolerated minimal activity. Patient to dismiss to [place] on this date for continued care. PT Machine Worker Goals Usp Goals PT Machine Worker Goals Time Frame: Jan 08, 2017 Transfers (B,C,W/C) (FIM): 2 Gait (FIM): 1 Gait distance (FIM): 1=up to 49 ft Distance: 5' Gait Level of Assist: 2 Gait Assistive Device: FWW PT Plan Treatment/Plan Treatment Plan: Discontinue PT Treatment Plan: Bed Mobility, Education, Functional Activity Sander, Functional Strength, Gait, Safety, Therapeutic Exercise, Transfers Treatment Duration: Jan 08, 2017 Visits Per Week: 5-6 Minutes/Day (Sat/Pandey): PRN Time/GCodes Time In: 1250 Time Out: 1305 Total Billed Treatment Time: 15 Total Billed Treatment 1 visit FA 15 min CARYL LION PT Jan 01, 2017 13:50
== END 2017-01-01 15:00 | DRG 457 ==
LOC: DELPENDDIS → 3RD 10:30 → SURG 10:31 → EDSTATUS 12:30 → ICU 18:30 → 4TH 12-30 10:54
PROVIDERS: ADMIT Orthopaedic Surgery; ATTEND Orthopaedic Surgery
PROC: 0SG3071 Fusion of Lumbosacral Joint with Autologous Tissue Substitute, Posterior Approach, Posterior Column, Open Approach (ICD-10-PCS; 2016-12-28)
PROC: 0SG507Z Fusion of Sacrococcygeal Joint with Autologous Tissue Substitute, Open Approach (ICD-10-PCS; 2016-12-28)
PROC: 0SG1071 Fusion of 2 or more Lumbar Vertebral Joints with Autologous Tissue Substitute, Posterior Approach, Posterior Column, Open Approach (ICD-10-PCS; principal; 2016-12-28 12:51)
DX: M80.08XA Age-related osteoporosis with current pathological fracture, vertebra(e), initial encounter for fracture (principal); M48.07 Spinal stenosis, lumbosacral region; M47.897 Other spondylosis, lumbosacral region; M41.56 Other secondary scoliosis, lumbar region; D62 Acute posthemorrhagic anemia; F03.91 Unspecified dementia, unspecified severity, with behavioral disturbance; I10 Essential (primary) hypertension; M54.16 Radiculopathy, lumbar region; M16.0 Bilateral primary osteoarthritis of hip; J44.9 Chronic obstructive pulmonary disease, unspecified; E83.51 Hypocalcemia; J30.2 Other seasonal allergic rhinitis; F42.9 Obsessive-compulsive disorder, unspecified; F41.9 Anxiety disorder, unspecified; E78.00 Pure hypercholesterolemia, unspecified; G47.9 Sleep disorder, unspecified; H91.90 Unspecified hearing loss, unspecified ear; H54.3 Unqualified visual loss, both eyes; K59.09 Other constipation; M79.673 Pain in unspecified foot; Z87.891 Personal history of nicotine dependence; Z85.828 Personal history of other malignant neoplasm of skin; Z99.81 Dependence on supplemental oxygen; Z86.79 Personal history of other diseases of the circulatory system; E87.1 Hypo-osmolality and hyponatremia
CPT/HCPCS: 36415; 72100; 72170; 80048; 80053; 82310; 82962; 85007; 85014; 85018; 85025; 85027; 86850; 86900; 86901; 86920; 87081; 88304; 88311; 94640; 94760